=== PATIENT | male | born 1980 | race African-American/Black ===

== ENCOUNTER 2018-02-21 13:04 | Emergency (ER) | payer SELFPAY ==
[2018-02-21] MEDS: IPRATRPIUM/ALBUTEROL 0.5/2.5MG 3 ML NEBU. NEB (13:57)
[2018-02-21] MEDS: cloNIDine HCL 0.1 MG TABLET PO (14:26)
[2018-02-21] MEDS: LISINOPRIL 10 MG TABLET PO (14:27)
[2018-02-21] MEDS: methylPREDNISolone SOD SUCC PF 125 MG/2 ML VIAL. IM (14:44)
[2018-02-21] MEDS: amLODIPine BESYLATE 5 MG TABLET PO (15:02)
== END 2018-02-21 15:13 | disposition home or self-care (01) ==
LOC: ER 13:04
DX: J45.901 Unspecified asthma with (acute) exacerbation (principal); I10 Essential (primary) hypertension
CPT/HCPCS: 94640; 96372; 99284; J2930; J7620

== ENCOUNTER 2018-03-05 19:36 | Emergency (ER) | payer SELFPAY ==
[2018-03-05] MEDS: methylPREDNISolone SOD SUCC PF 125 MG/2 ML VIAL. IM (20:00)
[2018-03-05] MEDS: IPRATRPIUM/ALBUTEROL 0.5/2.5MG 3 ML NEBU. NEB ×2 (20:18)
[2018-03-05] MEDS ORDERED: methylPREDNISolone SOD SUCC PF 125 MG/2 ML VIAL. IV (20:30)
== END 2018-03-05 21:08 | disposition home or self-care (01) ==
LOC: ER 21:08
DX: J45.901 Unspecified asthma with (acute) exacerbation (principal); I10 Essential (primary) hypertension; Z88.6 Allergy status to analgesic agent
CPT/HCPCS: 94640; 96372; 99284; J2930; J7620

== ENCOUNTER 2018-07-03 10:14 | Emergency (ER) | payer SELFPAY ==
[~2018-07-03] VITALS: Ht 193 cm; Wt 113.4 kg
[~2018-07-03 10:14] MED LIST: ALBU2.5V5 NEB; AMLO10TA6 PO; AMLO5TAB7 PO; AMOX1TAB11 PO; AZIT250T6 PO; HYDR25TA9 PO; LISI2.5T PO; PRED-220 PO; PRED20TA PO; PROAIR HFA8.5 GM INH
--- NOTE | 2018-07-03 11:04 | PHYS DOC ---
Past Medical History Past Medical History: Asthma, Hypertension Past Surgical History: Other Additional Past Surgical Histo: ACL, ACHILLES TENDON Alcohol Use: None Drug Use: None Adult General Chief Complaint Chief Complaint: ABSCESS HPI HPI Patient is a 38 year old male who presents with an abscess on the left buttock that he noted on Tuesday which is 4 days ago. Patient denies any fever. He states his tried to open up the abscess at home with no success. Review of Systems Review of Systems Constitutional: Denies fever or chills [] Eyes: Denies change in visual acuity, redness, or eye pain [] HENT: Denies nasal congestion or sore throat [] Respiratory: Denies cough or shortness of breath [] Cardiovascular: No additional information not addressed in HPI [] GI: Denies abdominal pain, nausea, vomiting, bloody stools or diarrhea [] : Denies dysuria or hematuria [] Musculoskeletal: Denies back pain or joint pain [] Integument: abscess on the left buttock Neurologic: Denies headache, focal weakness or sensory changes [] All other systems were reviewed and found to be within normal limits, except as documented in this note. Current Medications Current Medications Current Medications Medications (Trade) Dose Ordered Sig/Fariba Start Time Stop Time Status Last Admin Dose Admin Diphtheria/ Tetanus/Acell Pertussis (Boostrix) 0.5 ml ONCE ONCE 07/03/18 11:30 07/03/18 11:31 DC Lidocaine/Sodium Bicarbonate (Buffered Lidocaine 1%) 3 ml 1X ONCE 07/03/18 11:30 07/03/18 11:31 DC Allergies Allergies Allergies Coded Allergies Type Severity Reaction Last Updated Verified JESSICA Inhibitors Allergy Severe face / lipsswelling 03/20/18 Yes aspirin Allergy Severe ANAPHALAXIS 03/21/18 Yes Physical Exam Physical Exam Constitutional: Well developed, well nourished, no acute distress, non-toxic appearance. [] HENT: Normocephalic, atraumatic, bilateral external ears normal, oropharynx moist, no oral exudates, nose normal. [] Eyes: PERRLA, EOMI, conjunctiva normal, no discharge. [] Neck: Normal range of motion, no tenderness, supple, no stridor. [] Cardiovascular:Heart rate regular rhythm, no murmur [] Lungs & Thorax: Bilateral breath sounds clear to auscultation [] Abdomen: Bowel sounds normal, soft, no tenderness, no masses, no pulsatile masses. [] Skin: Warm, dry, and left buttock with an indurated area approximately 0.5 x 0.5 cm with surrounding area of firmness approximately 1 x 1 cm. The area is warm tender to touch with surrounding erythema. Back: No tenderness, no CVA tenderness. [] Extremities: No tenderness, no cyanosis, no clubbing, ROM intact, no edema. [] Neurologic: Alert and oriented X 3, normal motor function, normal sensory function, no focal deficits noted. [] Psychologic: Affect normal, judgement normal, mood normal. [] Current Patient Data Vital Signs Vital Signs Date Time Temp Pulse Resp B/P (MAP) Pulse Ox O2 Delivery O2 Flow Rate FiO2 07/03/18 11:05 98.7 66 18 195/117 (143) Room Air 98.7 EKG EKG [] Radiology/Procedures Radiology/Procedures Indication: abscess of the left buttock Procedure: The patient was positioned appropriately. Local anesthesia was 1% of lidocaine. An incision was then made over the apex of the lesion with an 11 blade and small amount of yellow bloody material was expressed. The drainage cavity was irrigated and covered with sterile gauze. The patients tetanus status updated as needed. The patient tolerated the procedure well. Complications: none.[] Course & Med Decision Making Course & Med Decision Making Pertinent Labs and Imaging studies reviewed. (See chart for details) This is a 38-year-old male patient presenting to the ED with an abscess to the left buttock that he has had for 4 days. Tetanus was updated. I&D was performed on the abscess. Patient was placed on Bactrim. Warm compresses recommended. Instructed to follow-up with PCP in 1-2 weeks as needed. Instructed to return to the ED at any point symptoms worsen. Dragon Disclaimer Dragon Disclaimer This electronic medical record was generated, in whole or in part, using a voice recognition dictation system. Departure Departure Impression: Primary Impression: Cellulitis and abscess of buttock Disposition: 01 HOME, SELF-CARE Condition: STABLE Referrals: Cem MASSEY MD (PCP) Follow-up in 1-2 weeks as needed Patient Instructions: Abscess, Care After Additional Instructions: You were evaluated in the emergency room for an abscess with cellulitis on her bilateral. Keep the area clean and dry. Follow-up with your own doctor in 1-2 weeks as needed. Complete your oral antibiotics. Come back to the ED at any point symptoms worsen. Scripts Sulfamethoxazole/Trimethoprim (BACTRIM DS TABLET) 1 Each Tablet 1 TAB PO BID, #20 TAB Prov: YESENIA KELSEY APRN 07/03/18 YESENIA KELSEY APRN Jul 03, 2018 11:04
[2018-07-03 11:05] VITALS: BP 195/117
[2018-07-03] MEDS ORDERED: DIPHTH,PERTUSS(ACELL),TET TOX 0.5 ML DISP.SYRIN. VAX IM ONE (11:30)
[2018-07-03] MEDS ORDERED: LIDOCAINE WITH 8.4% SOD BICARB 3 ML DISP.SYRIN. INJ ONE (11:30)
[2018-07-03] MEDS ORDERED: SULF1TAB24 PO (11:41)
== END 2018-07-03 12:30 | disposition home or self-care (01) ==
LOC: ER 10:14
DX: L02.31 Cutaneous abscess of buttock (principal); L03.317 Cellulitis of buttock; J45.909 Unspecified asthma, uncomplicated; I10 Essential (primary) hypertension; Z88.8 Allergy status to other drugs, medicaments and biological substances; Z88.6 Allergy status to analgesic agent
CPT/HCPCS: 10060; 99283

== ENCOUNTER 2019-02-01 15:39 | Emergency (ER) | payer SELFPAY ==
[~2019-02-01] VITALS: Ht 193 cm; Wt 113.4 kg
[~2019-02-01 15:39] MED LIST changes: +ALBU2.5V8 INH; -AMLO10TA6 PO; +AMLO10TA8 PO; +AMLO5TAB10 PO; -AMLO5TAB7 PO; +HYDR-2145 PO; -HYDR25TA9 PO; -PROAIR HFA8.5 GM INH; +SULF1TAB24 PO
--- NOTE | 2019-02-01 16:20 | PHYS DOC ---
Past Medical History Past Medical History: Asthma, Hypertension Past Surgical History: Other Additional Past Surgical Histo: ACL, ACHILLES TENDON Additional Information: non smoker Alcohol Use: None Drug Use: None Adult General Chief Complaint Chief Complaint: SOB HPI HPI Patient is a 38-year-old male who presents to the ER with a chief complaint of shortness breath. Has a history of asthma. Symptoms started this morning while working outside and has associated symptom of coughing. He has frequent asthma exacerbations and has been intubated in the past. Has used his inhaler 4 times today and states it is not getting better. States he is a 7 out of 10 in severity on the shortness of breath. Review of Systems Review of Systems Constitutional: Denies fever or chills [] Eyes: Denies change in visual acuity, redness, or eye pain [] HENT: Reports nasal congestion. Respiratory: Reports cough and shortness of breath [] Cardiovascular: No additional information not addressed in HPI [] GI: Denies abdominal pain, nausea, vomiting, bloody stools or diarrhea [] : Denies dysuria or hematuria [] Musculoskeletal: Denies back pain or joint pain [] Integument: Denies rash or skin lesions [] Neurologic: Denies headache, focal weakness or sensory changes [] Endocrine: Denies polyuria or polydipsia [] Complete systems were reviewed and found to be within normal limits, except as documented in this note. Current Medications Current Medications Current Medications Medications (Trade) Dose Ordered Sig/Fariba Start Time Stop Time Status Last Admin Dose Admin Albuterol Sulfate (Ventolin Neb Soln) 10 mg 1X ONCE 02/01/19 17:00 02/01/19 17:01 UNV Albuterol/ Ipratropium (Duoneb) 3 ml 1X ONCE 02/01/19 16:45 02/01/19 16:46 DC 02/01/19 16:38 3 ML Methylprednisolone Sodium Succinate (SOLU-Medrol 125MG VIAL) 125 mg 1X ONCE 02/01/19 16:45 02/01/19 16:46 DC 02/01/19 16:31 125 MG Allergies Allergies Allergies Coded Allergies Type Severity Reaction Last Updated Verified JESSICA Inhibitors Allergy Severe face / lipsswelling 03/20/18 Yes aspirin Allergy Severe ANAPHALAXIS 03/21/18 Yes Physical Exam Physical Exam Constitutional: Well developed, well nourished, no acute distress, non-toxic appearance. [] HENT: Normocephalic, atraumatic, bilateral external ears normal, oropharynx moist, no oral exudates, nose normal. [] Eyes: PERRLA, EOMI, conjunctiva normal, no discharge. [] Neck: Normal range of motion, no tenderness, supple, no stridor. [] Cardiovascular:Heart rate regular rhythm, no murmur [] Lungs & Thorax: Bilateral breath sounds wheezing in all lobes Abdomen: Bowel sounds normal, soft, no tenderness, no masses, no pulsatile masses. [] Skin: Warm, dry, no erythema, no rash. [] Back: No tenderness, no CVA tenderness. [] Extremities: No tenderness, no cyanosis, no clubbing, ROM intact, no edema. [] Neurologic: Alert and oriented X 3, normal motor function, normal sensory function, no focal deficits noted. [] Psychologic: Affect normal, judgement normal, mood normal. [] Current Patient Data Vital Signs Vital Signs Date Time Temp Pulse Resp B/P (MAP) Pulse Ox O2 Delivery O2 Flow Rate FiO2 02/01/19 17:09 99 Room Air 02/01/19 15:53 98.4 74 20 239/131 (167) 98.4 EKG EKG [] Radiology/Procedures Radiology/Procedures Prelim interpreted by []RENEE ROYAL DO Negative Chest x-ray. No infiltrates. Course & Med Decision Making Course & Med Decision Making Pertinent Labs and Imaging studies reviewed. (See chart for details) Discussed symptoms with patient. Will order chest x-ray, steroids, breathing treatment and then reevaluate the patient. He is agreeable to the plan of care. After initial breathing treatment and steroids patient has improved but still wheezing will do hour long treatment. Patient is agreeable. After hour long treatment, patient has improved more. He still has a mild wheeze in the Left upper lobe and mild wheezing in all of the right lobes. Patient s tates that he is feeling better. I offered admission to keep receiving breathing treatments and he states that he would rather be discharged home with a course of steroids. Will d/c patient home with course of steroids. Blood pressure was rechecked while I was in the room and is 197/120. Patient states he has been out of his blood pressure medication. I will prescribe him a weeks worth to get him to PCP. Kathy Disclaimer Dragon Disclaimer This electronic medical record was generated, in whole or in part, using a voice recognition dictation system. Departure Departure Impression: Primary Impression: Asthma with acute exacerbation Disposition: 01 HOME, SELF-CARE Condition: IMPROVED Referrals: Cem MASSEY MD (PCP) Patient Instructions: Asthma Prevention-Brief, Asthma, Adult, [id number] Additional Instructions: Follow up with PCP about asthma and BP. Take inhaler as directed and the rest of your asthma medications. Take steroids to help symptoms. Scripts Hydrochlorothiazide (HYDROCHLOROTHIAZIDE TABLET) 50 Mg Tablet 50 MG PO DAILY for Blood Pressure for 7 Days, #7 TAB 0 Refills Prov: MARY HA APRN 02/01/19 Prednisone (PREDNISONE) 20 Mg Tablet 3 TAB PO DAILY for 5 Days, #15 TAB Prov: MARY HA APRN 02/01/19 Problem Qualifiers Primary Impression: Asthma with acute exacerbation Asthma severity: moderate Asthma persistence: persistent Qualified Codes: J45.41 - Moderate persistent asthma with (acute) exacerbation MARY HA APRN February 01, 2019 16:20
[2019-02-01] MEDS ORDERED: IPRATRPIUM/ALBUTEROL 0.5/2.5MG 3 ML NEBU. NEB ONE (16:45)
[2019-02-01] MEDS ORDERED: methylPREDNISolone SOD SUCC PF 125 MG/2 ML VIAL. IM ONE (16:45)
[2019-02-01] MEDS ORDERED: ALBUTEROL SULFATE 2.5 MG/3 ML NEBU. ONE (16:51)
[2019-02-01] MEDS ORDERED: ALBUTEROL SULFATE 2.5 MG/3 ML NEBU. CONT NEB ONE ×2 (17:00)
--- NOTE | 2019-02-01 17:48 | RAD ---
CHEST PA LATERAL History: SOB starting this early am. Comparison with 02/01/2019. Heart size is not enlarged. The endotracheal tube has been removed as has feeding tube. No evidence of pneumothorax, pleural effusion or consolidating infiltrate. Regional skeleton appears intact. IMPRESSION: No consolidating infiltrate. Electronically signed by: Jadon Askew MD (02/01/2019 5:46 PM) [facility]
[2019-02-01] MEDS ORDERED: PRED20TA PO (18:34)
[2019-02-01] MEDS ORDERED: HYDR50TA6 PO (18:43)
[2019-02-01] MEDS ORDERED: LISI-334 PO (18:43)
[2019-02-01 18:46] VITALS: BP 197/131
== END 2019-02-01 18:46 | disposition home or self-care (01) ==
LOC: ER 15:39
DX: J45.21 Mild intermittent asthma with (acute) exacerbation (principal); I10 Essential (primary) hypertension; Z88.6 Allergy status to analgesic agent; Z88.8 Allergy status to other drugs, medicaments and biological substances
CPT/HCPCS: 71046; 94640; 94644; 96372; 99285; J2930; J7613; J7620

== ENCOUNTER 2019-02-12 11:47 | Inpatient (IN) | payer SELFPAY ==
[2019-02-12] VITALS (10 sets, daily range): BP systolic 132–207; BP diastolic 62–103
[~2019-02-12] VITALS: Ht 190.5 cm; Wt 106.6 kg
[~2019-02-12 11:47] MED LIST changes: +HYDR50TA6 PO; +LISI-334 PO
[2019-02-12] MEDS ORDERED: IPRATRPIUM/ALBUTEROL 0.5/2.5MG 3 ML NEBU. NEB ONE (12:00)
[2019-02-12] MEDS ORDERED: hydrALAZINE 20 MG/ML VIAL. IVP ONE ×2 (12:15→13:00)
[2019-02-12] MEDS ORDERED: methylPREDNISolone SOD SUCC PF 125 MG/2 ML VIAL. IV ONE (12:15)
--- NOTE | 2019-02-12 12:15 | PHYS DOC ---
Past Medical History Past Medical History: Asthma, Hypertension Past Surgical History: Other Additional Past Surgical Histo: ACL, ACHILLES TENDON Alcohol Use: None Drug Use: None Adult General Chief Complaint Chief Complaint: SHORTNESS OF BREATH HPI HPI Patient is a 38 year old male with a history of asthma hypertension presents to the ED complaining of shortness of breath times one week. Patient was last seen here on February 01. Patient states he had an hour-long breathing treatment and felt better. States that he is having worsening shortness of breath since then. Patient has been intubated in the past for his asthma. Reports he did not take his blood pressure. Denies headache, vision changes, chest pain, dizziness, n/v, abdominal pain, lower leg swelling, recent travel, rash, fever or sore throat. Review of Systems Review of Systems Constitutional: Denies fever or chills [] Eyes: Denies change in visual acuity, redness, or eye pain [] HENT: Denies nasal congestion or sore throat [] Respiratory: Complains of shortness of breath and wheezing. Cardiovascular: No additional information not addressed in HPI [] GI: Denies abdominal pain, nausea, vomiting, bloody stools or diarrhea [] : Denies dysuria or hematuria [] Musculoskeletal: Denies back pain or joint pain [] Integument: Denies rash or skin lesions [] Neurologic: Denies headache, focal weakness or sensory changes [] All other systems were reviewed and found to be within normal limits, except as documented in this note. Current Medications Current Medications Current Medications Medications (Trade) Dose Ordered Sig/Fariba Start Time Stop Time Status Last Admin Dose Admin Albuterol Sulfate (Ventolin Neb Soln) 10 mg 1X ONCE 02/12/19 12:45 02/12/19 12:46 DC 02/12/19 13:09 10 MG Albuterol/ Ipratropium (Duoneb) 3 ml 1X ONCE 02/12/19 12:00 02/12/19 12:01 DC 02/12/19 12:12 3 ML Clonidine HCl (Catapres) 0.2 mg 1X ONCE 02/12/19 13:00 02/12/19 13:02 DC 02/12/19 13:55 0.2 MG Hydralazine HCl (Apresoline Inj) 10 mg 1X ONCE 02/12/19 13:00 02/12/19 13:01 DC 02/12/19 12:59 10 MG Magnesium Sulfate 50 ml @ 25 mls/hr 1X ONCE 02/12/19 12:45 02/12/19 14:44 DC 02/12/19 12:59 25 MLS/HR Methylprednisolone Sodium Succinate (SOLU-Medrol 125MG VIAL) 125 mg 1X ONCE 02/12/19 12:15 02/12/19 12:16 DC 02/12/19 12:15 125 MG Allergies Allergies Allergies Coded Allergies Type Severity Reaction Last Updated Verified JESSICA Inhibitors Allergy Severe face / lipsswelling 03/20/18 Yes aspirin Allergy Severe ANAPHALAXIS 03/21/18 Yes Physical Exam Physical Exam Constitutional: no acute distress, non-toxic appearance. [] HENT: Normocephalic, atraumatic, bilateral external ears normal, oropharynx moist, no oral exudates, nose normal. [] Eyes: PERRLA, EOMI, conjunctiva normal, no discharge. [] Neck: Normal range of motion, no tenderness, supple, no stridor. [] Cardiovascular:Heart rate regular rhythm, no murmur [] Lungs & Thorax: Moderate wheezing bilaterally. Abdomen: Bowel sounds normal, soft, no tenderness, no masses, no pulsatile masses. [] Skin: Warm, dry, no erythema, no rash. [] Back: No tenderness, no CVA tenderness. [] Extremities: No tenderness, no cyanosis, no clubbing, ROM intact, no edema. [] Neurologic: Alert and oriented X 3, normal motor function, normal sensory function, no focal deficits noted. [] Psychologic: Affect normal, judgement normal, mood normal. [] Current Patient Data Vital Signs Vital Signs Date Time Temp Pulse Resp B/P (MAP) Pulse Ox O2 Delivery O2 Flow Rate FiO2 02/12/19 13:55 89 233/122 02/12/19 13:54 18 96 02/12/19 13:22 Room Air 02/12/19 11:48 98.0 98.0 Lab Values Laboratory Tests Test 02/12/19 12:00 White Blood Count 8.9 x10^3/uL (4.0-11.0) Red Blood Count 5.41 x10^6/uL (4.30-5.70) Hemoglobin 15.6 g/dL (13.0-17.5) Hematocrit 48.1 % (39.0-53.0) Mean Corpuscular Volume 89 fL (79-100) Mean Corpuscular Hemoglobin 29 pg (25-35) Mean Corpuscular Hemoglobin Concent 33 g/dL (31-37) Red Cell Distribution Width 16.7 % (11.5-14.5) H Platelet Count 227 x10^3/uL (140-400) Neutrophils (%) (Auto) 57 % (31-73) Lymphocytes (%) (Auto) 27 % (24-48) Monocytes (%) (Auto) 7 % (0-9) Eosinophils (%) (Auto) 8 % (0-3) H Basophils (%) (Auto) 1 % (0-3) Neutrophils # (Auto) 5.1 x10^3uL (1.8-7.7) Lymphocytes # (Auto) 2.4 x10^3/uL (1.0-4.8) Monocytes # (Auto) 0.6 x10^3/uL (0.0-1.1) Eosinophils # (Auto) 0.7 x10^3/uL (0.0-0.7) Basophils # (Auto) 0.1 x10^3/uL (0.0-0.2) Sodium Level 143 mmol/L (136-145) Potassium Level 3.7 mmol/L (3.5-5.1) Chloride Level 101 mmol/L (98-107) Carbon Dioxide Level 32 mmol/L (21-32) Anion Gap 10 (6-14) Blood Urea Nitrogen 11 mg/dL (8-26) Creatinine 1.3 mg/dL (0.7-1.3) Estimated GFR (Cockcroft-Gault) 74.0 Glucose Level 88 mg/dL (70-99) Calcium Level 9.4 mg/dL (8.5-10.1) Magnesium Level 2.0 mg/dL (1.8-2.4) Troponin I Quantitative 0.117 ng/mL (0.000-0.055) Laboratory Tests 02/12/19 12:00 Laboratory Tests 02/12/19 12:00 EKG EKG [] Radiology/Procedures Radiology/Procedures []PROCEDURE: PORTABLE CHEST 1V EXAM: CHEST 1 VIEW History: Shortness of breath COMPARISON: 02/01/2019 TECHNIQUE: Single portable radiograph of the chest FINDINGS: The cardiac silhouette is unremarkable. The lungs are clear bilaterally. The costophrenic sulci are clear and well demarcated. IMPRESSION: No radiographic evidence of an acute cardiopulmonary process. Course & Med Decision Making Course & Med Decision Making Pertinent Labs and Imaging studies reviewed. (See chart for details) []Discussed lab and imaging findings with patient. Patient given duoneb, 2 grams of magnesium, and an hour-long nebulizer in the ED. Patient's blood pressure is uncontrolled with IV medication in the ED and a cardene drip was started. BP at 1545 was 180s/90s. States he is feeling better. Patient to be admitted to the ICU for hypertensive urgency, elevated troponin and asthma exacerbation. Discussed case with hospitalist, Dr. Lowery. Agrees to admission and further management patient. Patient's stable for admission. Dragon Disclaimer Dragon Disclaimer This electronic medical record was generated, in whole or in part, using a voice recognition dictation system. Departure Departure Impression: Primary Impression: Acute severe exacerbation of asthma Additional Impressions: Elevated troponin Hypertensive urgency Disposition: 09 ADMITTED INPATIENT Admitting Physician: Danis Massey Condition: STABLE Referrals: Cem MASSEY MD (PCP) Problem Qualifiers ALIE MURDOCK February 12, 2019 12:15
[2019-02-12 12:18] LABS: BASO # 0.1 x10^3/uL (0.0-0.2); BASO % 1 % (0-3); EOS # 0.7 x10^3/uL (0.0-0.7); EOS % 8 % (0-3); HEMATOCRIT 48.1 % (39.0-53.0); HEMOGLOBIN 15.6 g/dL (13.0-17.5); LYMPH # 2.4 x10^3/uL (1.0-4.8); LYMPH % 27 % (24-48); MEAN CORPUSCULAR HEMOGLOBIN 29 pg (25-35); MEAN CORPUSCULAR HGB CONC 33 g/dL (31-37); MEAN CORPUSCULAR VOLUME 89 fL (79-100); MONO # 0.6 x10^3/uL (0.0-1.1); MONO % 7 % (0-9); NEUT # 5.1 x10^3uL (1.8-7.7); NEUT % 57 % (31-73); PLATELET COUNT 227 x10^3/uL (140-400); RED BLOOD COUNT 5.41 x10^6/uL (4.30-5.70); RED CELL DISTRIBUTION WIDTH 16.7 % (11.5-14.5); WHITE BLOOD COUNT 8.9 x10^3/uL (4.0-11.0)
--- NOTE | 2019-02-12 12:25 | RAD ---
EXAM: CHEST 1 VIEW History: Shortness of breath COMPARISON: 02/01/2019 TECHNIQUE: Single portable radiograph of the chest FINDINGS: The cardiac silhouette is unremarkable. The lungs are clear bilaterally. The costophrenic sulci are clear and well demarcated. IMPRESSION: No radiographic evidence of an acute cardiopulmonary process. Electronically signed by: Homer Damon MD (02/12/2019 12:22 PM) [id number]
[2019-02-12 12:28] LABS: CALCIUM 9.4 mg/dL (8.5-10.1); CREATININE 1.3 mg/dL (0.7-1.3); POTASSIUM 3.7 mmol/L (3.5-5.1)
[2019-02-12] MEDS ORDERED: ALBUTEROL SULFATE 2.5 MG/3 ML NEBU. CONT NEB ONE (12:45)
[2019-02-12] MEDS ORDERED: MAGNESIUM SULFATE 2GM 50 ML IV ONE (12:45)
[2019-02-12] MEDS ORDERED: cloNIDine HCL 0.1 MG TABLET PO ONE (13:00)
--- NOTE | 2019-02-12 13:23 | EKG ---
[facility] [address] [place] [address] Test Date: 2019-02-12 Test Time: 12:08:43 Pat Name: MARLENE MCMULLEN Department: Room: Gender: Ware[employer]ist: [place] : [id number] Requested By: ALIE MURDOCK Order Number: [id number] Reading MD: Juan Antonio Mo Measurements Intervals Palmer Rate: 79 P: 25 CO: 128 QRS: -31 QRSD: 88 T: 66 QT: 390 QTc: 448 Interpretive Statements SINUS RHYTHM LEFT ATRIAL ABNORMALITY ABNORMAL LEFT AXIS DEVIATION LEFT ANTERIOR FASCICULAR BLOCK T ABNORMALITY IN HIGH LATERAL LEADS ABNORMAL ECG Electronically Signed On 03-09-2019 11:40:14 CDT by Juan Antonio Mo
[2019-02-12] MEDS ORDERED: ONDANSETRON PF 4 MG/2 ML VIAL. IV PRN (14:30)
[2019-02-12] MEDS: niCARdipine 50 MG in IV NORMAL SALINE 250ML 250 ML IV PRN ×2 (15:22→19:40)
[2019-02-12] MEDS: IPRATRPIUM/ALBUTEROL 0.5/2.5MG 3 ML NEBU. NEB SCH ×2 (17:22→20:00)
[2019-02-12] MEDS ORDERED: ALBUTEROL SULFATE 2.5 MG/3 ML NEBU. NEB PRN (19:15)
--- NOTE | 2019-02-12 19:16 | PDOC1 ---
History and Physical Date of Admission Date of Admission DATE: 02/12/19 TIME: 19:13 Identification/Chief Complaint Chief Complaint Shortness of breath Source Source: Patient History of Present Illness History of Present Illness Patient is a 38 year old male with a history of asthma (previously requiring intubation), hypertension presents to the ED complaining of shortness of breath progressive over the past week. Patient was last seen here on February 01. Patient states he had an hour-long breathing treatment and felt better, was sent home on steroid taper. States that he is having worsening shortness of breath since then that barely improved. Patient has been intubated in the past for his asthma, so after only slight improvement in his respiratory status in ED he was called for admission. Reports he did not take his blood pressure. Denies headache, vision changes, chest pain, dizziness, n/v, abdominal pain, lower leg swelling, recent travel, rash, fever or sore throat. He was noted with severely elevated BP 233/133 and elevated troponin as well, admitted to ICU for nicardipine GTT. Past Medical History Cardiovascular: HTN Pulmonary: Asthma, Previously Intubated GI: No pertinent hx Heme/Onc: No pertinent hx Hepatobiliary: No pertinent hx Psych: No pertinent hx Rheumatologic: No pertinent hx Infectious disease: No pertinent hx ENT: No pertinent hx Renal/: No pertinent hx Endocrine: No pertinent hx Dermatology: No pertinent hx Past Surgical History Past Surgical History: No pertinent history Family History Family History: Asthma Social History Smoke: No ALCOHOL: rare Drugs: Marijuana Current Problem List Problem List Problems Medical Problems: (1) Acute severe exacerbation of asthma Status: Acute (2) Elevated troponin Status: Acute (3) Hypertensive urgency Status: Acute (4) Hypertensive urgency, malignant Status: Acute Current Medications Current Medications Current Medications Albuterol/ Ipratropium (Duoneb) 3 ml 1X ONCE NEB Last administered on 02/12/19at 12:12; Start 02/12/19 at 12:00; Stop 02/12/19 at 12:01; Status DC Methylprednisolone Sodium Succinate (SOLU-Medrol 125MG VIAL) 125 mg 1X ONCE IV Last administered on 02/12/19at 12:15; Start 02/12/19 at 12:15; Stop 02/12/19 at 12:16; Status DC Hydralazine HCl (Apresoline Inj) 10 mg 1X ONCE IVP Last administered on 02/12/19at 12:18; Start 02/12/19 at 12:15; Stop 02/12/19 at 12:16; Status DC Albuterol Sulfate (Ventolin Neb Soln) 10 mg 1X ONCE CONT NEB Last administered on 02/12/19at 13:09; Start 02/12/19 at 12:45; Stop 02/12/19 at 12:46; Status DC Magnesium Sulfate 50 ml @ 25 mls/hr 1X ONCE IV Last administered on 02/12/19at 12:59; Start 02/12/19 at 12:45; Stop 02/12/19 at 14:44; Status DC Hydralazine HCl (Apresoline Inj) 10 mg 1X ONCE IVP Last administered on 02/12/19at 12:59; Start 02/12/19 at 13:00; Stop 02/12/19 at 13:01; Status DC Clonidine HCl (Catapres) 0.2 mg 1X ONCE PO Last administered on 02/12/19at 13:55; Start 02/12/19 at 13:00; Stop 02/12/19 at 13:02; Status DC Ondansetron HCl (Zofran) 4 mg PRN Q8HRS PRN IV NAUSEA/VOMITING; Start 02/12/19 at 14:30; Stop 02/13/19 at 14:29 Fentanyl Citrate (Fentanyl 2ml Vial) 50 mcg PRN Q1HR PRN IV PAIN; Start 02/12/19 at 14:30; Stop 02/13/19 at 14:29 Albuterol/ Ipratropium (Duoneb) 3 ml RTQID NEB Last administered on 02/12/19at 17:22; Start 02/12/19 at 16:00; Stop 02/13/19 at 15:59 Nicardipine HCl 50 mg/Sodium Chloride 250 ml @ 25 mls/hr CONT PRN IV SEE I/O RECORD Last administered on 02/12/19at 15:22; Start 02/12/19 at 15:15 Active Scripts Active Hydrochlorothiazide Tablet (Hydrochlorothiazide) 25 Mg Tablet 25 Mg PO DAILY 30 Days Albuterol Sulfate Neb Soln (Albuterol Sulfate) 2.5 Mg/3 Ml Vial.neb 1 Vial NEB PRN Q4HRS Allergies Allergies: Coded Allergies: JESSICA Inhibitors (Verified Allergy, Severe, face / lipsswelling, 6/18/18) aspirin (Verified Allergy, Severe, ANAPHALAXIS, 03/21/18) ROS General: YES: Fatigue, Malaise; No: Chills, Night Sweats, Appetite, Other PSYCHOLOGICAL ROS: No: Anxiety, Behavioral Disorder, Concentration difficultie, Decreased libido, Depression, Disorientation, Hallucinations, Hostility, Irritablity, Memory difficulties, Mood Swings, Obsessive thoughts, Physical abuse, Sexual abuse, Sleep disturbances, Suicidal ideation, Other Eyes: No Blurry vision, No Decreased vision, No Double vision, No Dry eyes, No Excessive tearing, No Eye Pain, No Itchy Eyes, No Loss of vision, No Photophobia, No Scotomata, No Uses contacts, No Uses glasses, No Other HEENT: No: Heacaches, Visual Changes, Hearing change, Nasal congestion, Nasal discharge, Oral lesions, Sinus pain, Sore Throat, Epistaxis, Sneezing, Snoring, Tinnitus, Vertigo, Vocal changes, Other ALLERGY AND IMMUNOLOGY: YES: Nasal Congestion, Post Nasal Drip, Seasonal Allergies; No: Hives, Insect Bite Sensitivity, Itchy/Watery Eyes, Other Hematological and Lymphatic: No: Bleeding Problems, Blood Clots, Blood Transfusions, Brusing, Night Sweats, Pallor, Swollen Lymph Nodes, Other ENDOCRINE: No: Breast Changes, Galactorrhea, Hair Pattern Changes, Hot Flashes, Malaise/lethargy, Mood Swings, Palpitations, Polydipsia/polyuria, Skin Changes, Temperature Intolerance, Unexpected Weight Changes, Other Breast: No New/Changing Breast Lumps, No Nipple changes, No Nipple discharge, No Other Respiratory: YES: Cough, Shortness of breath, SOB with excertion, Tachypnea, Wheezing; No: Hemoptysis, Orthopnea, Pleuritic Pain, Sputum Changes, Stridor, Other Cardiovascular: No Chest Pain, No Palpitations, No Orthopnea, No Paroxysmal Noc. Dyspnea, No Edema, No Lt Headedness, No Other Gastrointestinal: Yes Nausea; No Vomiting, No Abdominal Pain, No Diarrhea, No Constipation, No Melena, No Hematochezia, No Other Genitourinary: No Dysuria, No Frequency, No Incontinence, No Hematuria, No Retention, No Discharge, No Urgency, No Pain, No Flank Pain, No Other, No , No , No , No , No , No , No Musculoskeletal: No Gait Disturbance, No Joint Pain, No Joint Stiffness, No Joint Swelling, No Muscle Pain, No Muscular Weakness, No Pain In:, No Swelling In:, No Other Neurological: No Behavorial Changes, No Bowel/Bladder ControlChng, No Confusion, No Dizziness, No Gait Disturbance, No Headaches, No Impaired Coord/balance, No Memory Loss, No Numbness/Tingling, No Seizures, No Speech Problems, No Tremors, No Visual Changes, No Weakness, No Other Skin: No Dry Skin, No Eczema, No Hair Changes, No Lumps, No Mole Changes, No Mottling, No Nail Changes, No Pruritus, No Rash, No Skin Lesion Changes, No Other, No Acne Physical Exam General: Alert, Oriented X3, Cooperative, No acute distress HEENT: Atraumatic, PERRLA, EOMI, Mucous membr. moist/pink Lungs: Other (Scattered wheezes, prolonged expiratory phase) Heart: S1S2, RRR, no gallops, no murmurs Abdomen: Normal bowel sounds, Soft, No tenderness, No hepatosplenomegaly, No masses Extremities: No clubbing, No cyanosis, No edema, Normal pulses, No tenderness/swelling Skin: No rashes, No breakdown, No significant lesion Neuro: Normal gait, Normal speech, Strength at 5/5 X4 ext, Normal tone, Sensation intact, Cranial nerves 3-12 NL, Reflexes 2+ Psych/Mental Status: Mental status NL, Mood NL Vitals Vitals Vital Signs Date Time Temp Pulse Resp B/P (MAP) Pulse Ox O2 Delivery O2 Flow Rate FiO2 02/12/19 18:00 101 20 186/99 (128) 96 Room Air 02/12/19 16:00 98.1 98.1 Labs Labs Laboratory Tests Test 02/12/19 12:00 White Blood Count 8.9 x10^3/uL (4.0-11.0) Red Blood Count 5.41 x10^6/uL (4.30-5.70) Hemoglobin 15.6 g/dL (13.0-17.5) Hematocrit 48.1 % (39.0-53.0) Mean Corpuscular Volume 89 fL (79-100) Mean Corpuscular Hemoglobin 29 pg (25-35) Mean Corpuscular Hemoglobin Concent 33 g/dL (31-37) Red Cell Distribution Width 16.7 % (11.5-14.5) Platelet Count 227 x10^3/uL (140-400) Neutrophils (%) (Auto) 57 % (31-73) Lymphocytes (%) (Auto) 27 % (24-48) Monocytes (%) (Auto) 7 % (0-9) Eosinophils (%) (Auto) 8 % (0-3) Basophils (%) (Auto) 1 % (0-3) Neutrophils # (Auto) 5.1 x10^3uL (1.8-7.7) Lymphocytes # (Auto) 2.4 x10^3/uL (1.0-4.8) Monocytes # (Auto) 0.6 x10^3/uL (0.0-1.1) Eosinophils # (Auto) 0.7 x10^3/uL (0.0-0.7) Basophils # (Auto) 0.1 x10^3/uL (0.0-0.2) Sodium Level 143 mmol/L (136-145) Potassium Level 3.7 mmol/L (3.5-5.1) Chloride Level 101 mmol/L (98-107) Carbon Dioxide Level 32 mmol/L (21-32) Anion Gap 10 (6-14) Blood Urea Nitrogen 11 mg/dL (8-26) Creatinine 1.3 mg/dL (0.7-1.3) Estimated GFR (Cockcroft-Gault) 74.0 Glucose Level 88 mg/dL (70-99) Calcium Level 9.4 mg/dL (8.5-10.1) Magnesium Level 2.0 mg/dL (1.8-2.4) Troponin I Quantitative 0.117 ng/mL (0.000-0.055) Laboratory Tests Test 02/12/19 12:00 White Blood Count 8.9 x10^3/uL (4.0-11.0) Red Blood Count 5.41 x10^6/uL (4.30-5.70) Hemoglobin 15.6 g/dL (13.0-17.5) Hematocrit 48.1 % (39.0-53.0) Mean Corpuscular Volume 89 fL (79-100) Mean Corpuscular Hemoglobin 29 pg (25-35) Mean Corpuscular Hemoglobin Concent 33 g/dL (31-37) Red Cell Distribution Width 16.7 % (11.5-14.5) Platelet Count 227 x10^3/uL (140-400) Neutrophils (%) (Auto) 57 % (31-73) Lymphocytes (%) (Auto) 27 % (24-48) Monocytes (%) (Auto) 7 % (0-9) Eosinophils (%) (Auto) 8 % (0-3) Basophils (%) (Auto) 1 % (0-3) Neutrophils # (Auto) 5.1 x10^3uL (1.8-7.7) Lymphocytes # (Auto) 2.4 x10^3/uL (1.0-4.8) Monocytes # (Auto) 0.6 x10^3/uL (0.0-1.1) Eosinophils # (Auto) 0.7 x10^3/uL (0.0-0.7) Basophils # (Auto) 0.1 x10^3/uL (0.0-0.2) Sodium Level 143 mmol/L (136-145) Potassium Level 3.7 mmol/L (3.5-5.1) Chloride Level 101 mmol/L (98-107) Carbon Dioxide Level 32 mmol/L (21-32) Anion Gap 10 (6-14) Blood Urea Nitrogen 11 mg/dL (8-26) Creatinine 1.3 mg/dL (0.7-1.3) Estimated GFR (Cockcroft-Gault) 74.0 Glucose Level 88 mg/dL (70-99) Calcium Level 9.4 mg/dL (8.5-10.1) Magnesium Level 2.0 mg/dL (1.8-2.4) Troponin I Quantitative 0.117 ng/mL (0.000-0.055) Images Images CXR - No radiographic evidence of an acute cardiopulmonary process. VTE Prophylaxis Ordered VTE Prophylaxis Devices: No VTE Pharmacological Prophylaxi: Yes Assessment/Plan Assessment/Plan A/P: Acute asthma exacerbation - previously requiring intubation, he has air movement, came early enough to likely avoid intubation. Will give aggressive nebs, steroids, singulair, pulmicort. Pulm to see. Hypertensive emergency - with elevated troponin, with his JESSICA allergy and no response to hydralazine and relative contraindication to BB with his asthma exacerbation and BP 233/133 will admit to ICU on nicardipine GTT, start thiazide and hopefully change to oral CCB in the morning Elevated troponin - likely demand ischemia from asthma and HTN emergency, will trend. May need echo and stress testing when his asthma is stable IVAN - cr 1.3, likely vasomotor from poor PO intake due to his asthma exacerbation. encourage PO. Will not give IVF due to his elevated BP FEN - General diet PPX - heparin FULL CODE ICU for HTN emergency with concomitant asthma exacerbation will require likely 2 midnights of inpatient treatment JOAO RIZZO MD February 12, 2019 19:16
[2019-02-12] MEDS: BUDESONIDE 0.5 MG/2 ML NEBU. NEB SCH (20:00)
[2019-02-12] MEDS: hydroCHLOROthiazide 25 MG TABLET PO SCH (20:03)
[2019-02-12] MEDS: fentaNYL PF VIAL 100 MCG/2 ML VIAL IV PRN (20:52)
[2019-02-12] MEDS ORDERED: MONTELUKAST SODIUM 10 MG TABLET. PO SCH (21:00)
[2019-02-12] MEDS ORDERED: LORazepam 1 MG TABLET PO PRN (22:45)
[2019-02-13] VITALS (18 sets, daily range): BP systolic 106–185; BP diastolic 58–94
[2019-02-13] MEDS: niCARdipine 50 MG in IV NORMAL SALINE 250ML 250 ML IV PRN ×3 (01:04→10:31)
[2019-02-13] MEDS: hydrALAZINE 20 MG/ML VIAL. IVP PRN ×3 (01:14→15:40)
[2019-02-13 04:32] LABS: BASO % 0 % (0-3); EOS % 0 % (0-3); HEMATOCRIT 44.4 % (39.0-53.0); HEMOGLOBIN 14.5 g/dL (13.0-17.5); LYMPH # 1.3 x10^3/uL (1.0-4.8); LYMPH % 7 % (24-48); MEAN CORPUSCULAR HEMOGLOBIN 29 pg (25-35); MEAN CORPUSCULAR HGB CONC 33 g/dL (31-37); MEAN CORPUSCULAR VOLUME 88 fL (79-100); MONO # 0.7 x10^3/uL (0.0-1.1); MONO % 4 % (0-9); NEUT # 16.8 x10^3uL (1.8-7.7); NEUT % 89 % (31-73); PLATELET COUNT 224 x10^3/uL (140-400); RED BLOOD COUNT 5.05 x10^6/uL (4.30-5.70); RED CELL DISTRIBUTION WIDTH 16.4 % (11.5-14.5); WHITE BLOOD COUNT 18.8 x10^3/uL (4.0-11.0)
[2019-02-13] MEDS: fentaNYL PF VIAL 100 MCG/2 ML VIAL IV PRN (04:44)
[2019-02-13 04:59] LABS: ALBUMIN 3.6 g/dL (3.4-5.0); ALBUMIN/GLOBULIN RATIO 0.9 (1.0-1.7); CALCIUM 9.5 mg/dL (8.5-10.1); CREATININE 1.4 mg/dL (0.7-1.3); GFR 67.9; POTASSIUM 3.7 mmol/L (3.5-5.1); TOTAL BILIRUBIN 0.5 mg/dL (0.2-1.0); TOTAL PROTEIN 7.4 g/dL (6.4-8.2)
[2019-02-13 05:12] LABS: % BANDS 1 % (0-9); % LYMPHS 11 % (24-48); % MONOS 1 % (0-10); % SEGS 87 % (35-66); PLT ESTIMATE ADEQUATE (ADEQUATE)
[2019-02-13] MEDS: IPRATRPIUM/ALBUTEROL 0.5/2.5MG 3 ML NEBU. NEB SCH ×2 (08:39→12:51)
[2019-02-13] MEDS: BUDESONIDE 0.5 MG/2 ML NEBU. NEB SCH (08:39)
[2019-02-13] MEDS: hydroCHLOROthiazide 25 MG TABLET PO SCH (08:47)
[2019-02-13] MEDS ORDERED: predniSONE 20 MG TABLET PO SCH (09:00)
--- NOTE | 2019-02-13 11:29 | NUR ---
SS following for discharge planning. SS reviewed pt chart. Pt is from home with spouse and is currently on room air. Pt is self pay and [facility] is following for self pay status. No discharge needs noted at this time. SS will continue to follow for discharge planning.
--- NOTE | 2019-02-13 11:54 | CONS ---
DATE OF CONSULTATION: ATTENDING PHYSICIAN: Dr. Lowery. REASON FOR CONSULTATION: Asthma exacerbation. HISTORY OF PRESENT ILLNESS: The patient is a 38-year-old who has history of asthma as a child, he never outgrew it. He has received intubation about 15 years ago. His asthma is usually triggered by allergies and pollens around springtime. The patient was brought into the hospital with complaint of some shortness of breath. He has no significant cough, fever, chills, no chest pains. His blood pressure was also high up to 233/133. As a result, he has been on Cardene drip in the ICU. Chest x-ray showed hyperinflated lungs, but no definite infiltrates. He feels better and wants to go home. He is on a Cardene drip still. PAST MEDICAL HISTORY: History of hypertension, history of asthma as a child. Never outgrew it. PAST SURGICAL HISTORY: No recent surgeries. ALLERGIES: JESSICA INHIBITORS AND ASPIRIN. CURRENT MEDICATIONS: Reviewed as listed in the [facility]. REVIEW OF SYSTEMS: Twelve-point system obtained. Pertinent positives discussed in my history of present illness, otherwise noncontributory. All systems that were negative were reviewed as well. SOCIAL HISTORY: Nonsmoker. PHYSICAL EXAMINATION: VITAL SIGNS: Reviewed. Blood pressure now 166. Pulse ox 97% on room air. NECK: Supple. LUNGS: With faint expiratory wheezes. CARDIOVASCULAR: Regular rate and rhythm. ABDOMEN: Soft. EXTREMITIES: With no pitting edema. LABORATORY DATA: Reviewed. BUN 13, creatinine 1.4. White cell count 18.8, which was 8.9 and likely due to steroids. IMPRESSION: 1. Acute asthma exacerbation in a patient with asthma since childhood, never outgrew it. Asthma is usually triggered by pollens and allergies. No acute infection. He is unable to afford a steroid maintenance inhaler in order to have better control of his asthma. 2. Hypertensive urgency. Currently on Cardene drip. RECOMMENDATIONS: 1. Discussed with the patient the importance of having steroid inhaler on a regular basis. I have referred him to the clinics that could help supply free of cost inhalers. Now, I may give him a sample from the office of [facility]. In the meantime, he will need a steroid taper and albuterol inhaler along with Singulair. 2. Management of blood pressure per PCP. 3. We could go home later this afternoon once he is off the Cardene drip. Discussed with RN. BRIANA TELLES MD DR: RADHA/fernanda JOB#: [id number] / [id number]
[2019-02-13] MEDS ORDERED: amLODIPine BESYLATE 5 MG TABLET PO ONE (12:00)
--- NOTE | 2019-02-13 15:18 | PDOC ---
[employer] PROGRESS NOTE Chief Complaint Chief Complaint Acute asthma exacerbation Hypertensive urgency, chronic HTN Elevated Troponin Elevated Creatinine Marijuana use History of Present Illness History of Present Illness Patient seen and examined in ICU Discussed the risks and complications of HTN with patient Advised patient to get a home BP cuff and added a medication to his home regimen as he reports he has not PCP Discussed with nurse Patient is anxious to get out of the hospital Vitals Vitals Vital Signs Date Time Temp Pulse Resp B/P (MAP) Pulse Ox O2 Delivery O2 Flow Rate FiO2 02/13/19 13:00 89 18 174/83 (113) 97 Room Air 02/13/19 12:00 98.3 98.3 Physical Exam General: Alert, Oriented X3, Cooperative, No acute distress Lungs: Wheezing (mild wheezing upon ascultation) Abdomen: Normal bowel sounds, Soft, No tenderness, No hepatosplenomegaly, No masses Extremities: No clubbing, No cyanosis, No edema, Normal pulses, No tenderness/swelling Skin: No rashes, No breakdown, No significant lesion Labs LABS Laboratory Tests Test 02/12/19 17:38 02/12/19 20:35 02/13/19 04:15 Nasal Screen MRSA (PCR) Negative (Negative) Troponin I Quantitative 0.102 ng/mL (0.000-0.055) White Blood Count 18.8 x10^3/uL (4.0-11.0) Red Blood Count 5.05 x10^6/uL (4.30-5.70) Hemoglobin 14.5 g/dL (13.0-17.5) Hematocrit 44.4 % (39.0-53.0) Mean Corpuscular Volume 88 fL (79-100) Mean Corpuscular Hemoglobin 29 pg (25-35) Mean Corpuscular Hemoglobin Concent 33 g/dL (31-37) Red Cell Distribution Width 16.4 % (11.5-14.5) Platelet Count 224 x10^3/uL (140-400) Neutrophils (%) (Auto) 89 % (31-73) Lymphocytes (%) (Auto) 7 % (24-48) Monocytes (%) (Auto) 4 % (0-9) Eosinophils (%) (Auto) 0 % (0-3) Basophils (%) (Auto) 0 % (0-3) Neutrophils # (Auto) 16.8 x10^3uL (1.8-7.7) Lymphocytes # (Auto) 1.3 x10^3/uL (1.0-4.8) Monocytes # (Auto) 0.7 x10^3/uL (0.0-1.1) Eosinophils # (Auto) 0.0 x10^3/uL (0.0-0.7) Basophils # (Auto) 0.0 x10^3/uL (0.0-0.2) Segmented Neutrophils % 87 % (35-66) Band Neutrophils % 1 % (0-9) Lymphocytes % 11 % (24-48) Monocytes % 1 % (0-10) Platelet Estimate Adequate (ADEQUATE) Sodium Level 139 mmol/L (136-145) Potassium Level 3.7 mmol/L (3.5-5.1) Chloride Level 101 mmol/L (98-107) Carbon Dioxide Level 28 mmol/L (21-32) Anion Gap 10 (6-14) Blood Urea Nitrogen 13 mg/dL (8-26) Creatinine 1.4 mg/dL (0.7-1.3) Estimated GFR (Cockcroft-Gault) 67.9 BUN/Creatinine Ratio 9 (6-20) Glucose Level 120 mg/dL (70-99) Calcium Level 9.5 mg/dL (8.5-10.1) Total Bilirubin 0.5 mg/dL (0.2-1.0) Aspartate Amino Transf (AST/SGOT) 26 U/L (15-37) Alanine Aminotransferase (ALT/SGPT) 28 U/L (16-63) Alkaline Phosphatase 62 U/L (46-116) Total Protein 7.4 g/dL (6.4-8.2) Albumin 3.6 g/dL (3.4-5.0) Albumin/Globulin Ratio 0.9 (1.0-1.7) Review of Systems Review of Systems Patient denies chest pain Patient denies abdominal pain Assessment and Plan Assessmemt and Plan Problems Medical Problems: (1) Acute severe exacerbation of asthma Status: Acute (2) Elevated troponin Status: Acute (3) Hypertensive urgency Status: Acute (4) Hypertensive urgency, malignant Status: Acute Assessment: Acute asthma exacerbation Hypertensive urgency, chronic HTN Elevated Troponin Elevated Creatinine Marijuana use Plan: Nicardipine drip Duonebs Pulmicort Labs DVT ppx Full code For out patient use: Norvasc, Medrol dose pack, albuterol inhaler, nebulizer refill Discharge to home when pulmonary agrees Comment Review of Relevant I have reviewed the following items osbaldo (where applicable) has been applied. Labs Laboratory Tests Test 02/12/19 12:00 02/12/19 17:38 02/12/19 20:35 02/13/19 04:15 White Blood Count 8.9 x10^3/uL (4.0-11.0) 18.8 x10^3/uL (4.0-11.0) Red Blood Count 5.41 x10^6/uL (4.30-5.70) 5.05 x10^6/uL (4.30-5.70) Hemoglobin 15.6 g/dL (13.0-17.5) 14.5 g/dL (13.0-17.5) Hematocrit 48.1 % (39.0-53.0) 44.4 % (39.0-53.0) Mean Corpuscular Volume 89 fL (79-100) 88 fL (79-100) Mean Corpuscular Hemoglobin 29 pg (25-35) 29 pg (25-35) Mean Corpuscular Hemoglobin Concent 33 g/dL (31-37) 33 g/dL (31-37) Red Cell Distribution Width 16.7 % (11.5-14.5) 16.4 % (11.5-14.5) Platelet Count 227 x10^3/uL (140-400) 224 x10^3/uL (140-400) Neutrophils (%) (Auto) 57 % (31-73) 89 % (31-73) Lymphocytes (%) (Auto) 27 % (24-48) 7 % (24-48) Monocytes (%) (Auto) 7 % (0-9) 4 % (0-9) Eosinophils (%) (Auto) 8 % (0-3) 0 % (0-3) Basophils (%) (Auto) 1 % (0-3) 0 % (0-3) Neutrophils # (Auto) 5.1 x10^3uL (1.8-7.7) 16.8 x10^3uL (1.8-7.7) Lymphocytes # (Auto) 2.4 x10^3/uL (1.0-4.8) 1.3 x10^3/uL (1.0-4.8) Monocytes # (Auto) 0.6 x10^3/uL (0.0-1.1) 0.7 x10^3/uL (0.0-1.1) Eosinophils # (Auto) 0.7 x10^3/uL (0.0-0.7) 0.0 x10^3/uL (0.0-0.7) Basophils # (Auto) 0.1 x10^3/uL (0.0-0.2) 0.0 x10^3/uL (0.0-0.2) Sodium Level 143 mmol/L (136-145) 139 mmol/L (136-145) Potassium Level 3.7 mmol/L (3.5-5.1) 3.7 mmol/L (3.5-5.1) Chloride Level 101 mmol/L (98-107) 101 mmol/L (98-107) Carbon Dioxide Level 32 mmol/L (21-32) 28 mmol/L (21-32) Anion Gap 10 (6-14) 10 (6-14) Blood Urea Nitrogen 11 mg/dL (8-26) 13 mg/dL (8-26) Creatinine 1.3 mg/dL (0.7-1.3) 1.4 mg/dL (0.7-1.3) Estimated GFR (Cockcroft-Gault) 74.0 67.9 Glucose Level 88 mg/dL (70-99) 120 mg/dL (70-99) Calcium Level 9.4 mg/dL (8.5-10.1) 9.5 mg/dL (8.5-10.1) Magnesium Level 2.0 mg/dL (1.8-2.4) Troponin I Quantitative 0.117 ng/mL (0.000-0.055) 0.102 ng/mL (0.000-0.055) Nasal Screen MRSA (PCR) Negative (Negative) Segmented Neutrophils % 87 % (35-66) Band Neutrophils % 1 % (0-9) Lymphocytes % 11 % (24-48) Monocytes % 1 % (0-10) Platelet Estimate Adequate (ADEQUATE) BUN/Creatinine Ratio 9 (6-20) Total Bilirubin 0.5 mg/dL (0.2-1.0) Aspartate Amino Transf (AST/SGOT) 26 U/L (15-37) Alanine Aminotransferase (ALT/SGPT) 28 U/L (16-63) Alkaline Phosphatase 62 U/L (46-116) Total Protein 7.4 g/dL (6.4-8.2) Albumin 3.6 g/dL (3.4-5.0) Albumin/Globulin Ratio 0.9 (1.0-1.7) Laboratory Tests Test 02/12/19 17:38 02/12/19 20:35 02/13/19 04:15 Nasal Screen MRSA (PCR) Negative (Negative) Troponin I Quantitative 0.102 ng/mL (0.000-0.055) White Blood Count 18.8 x10^3/uL (4.0-11.0) Red Blood Count 5.05 x10^6/uL (4.30-5.70) Hemoglobin 14.5 g/dL (13.0-17.5) Hematocrit 44.4 % (39.0-53.0) Mean Corpuscular Volume 88 fL (79-100) Mean Corpuscular Hemoglobin 29 pg (25-35) Mean Corpuscular Hemoglobin Concent 33 g/dL (31-37) Red Cell Distribution Width 16.4 % (11.5-14.5) Platelet Count 224 x10^3/uL (140-400) Neutrophils (%) (Auto) 89 % (31-73) Lymphocytes (%) (Auto) 7 % (24-48) Monocytes (%) (Auto) 4 % (0-9) Eosinophils (%) (Auto) 0 % (0-3) Basophils (%) (Auto) 0 % (0-3) Neutrophils # (Auto) 16.8 x10^3uL (1.8-7.7) Lymphocytes # (Auto) 1.3 x10^3/uL (1.0-4.8) Monocytes # (Auto) 0.7 x10^3/uL (0.0-1.1) Eosinophils # (Auto) 0.0 x10^3/uL (0.0-0.7) Basophils # (Auto) 0.0 x10^3/uL (0.0-0.2) Segmented Neutrophils % 87 % (35-66) Band Neutrophils % 1 % (0-9) Lymphocytes % 11 % (24-48) Monocytes % 1 % (0-10) Platelet Estimate Adequate (ADEQUATE) Sodium Level 139 mmol/L (136-145) Potassium Level 3.7 mmol/L (3.5-5.1) Chloride Level 101 mmol/L (98-107) Carbon Dioxide Level 28 mmol/L (21-32) Anion Gap 10 (6-14) Blood Urea Nitrogen 13 mg/dL (8-26) Creatinine 1.4 mg/dL (0.7-1.3) Estimated GFR (Cockcroft-Gault) 67.9 BUN/Creatinine Ratio 9 (6-20) Glucose Level 120 mg/dL (70-99) Calcium Level 9.5 mg/dL (8.5-10.1) Total Bilirubin 0.5 mg/dL (0.2-1.0) Aspartate Amino Transf (AST/SGOT) 26 U/L (15-37) Alanine Aminotransferase (ALT/SGPT) 28 U/L (16-63) Alkaline Phosphatase 62 U/L (46-116) Total Protein 7.4 g/dL (6.4-8.2) Albumin 3.6 g/dL (3.4-5.0) Albumin/Globulin Ratio 0.9 (1.0-1.7) Medications Current Medications Albuterol/ Ipratropium (Duoneb) 3 ml 1X ONCE NEB Last administered on 02/12/19at 12:12; Start 02/12/19 at 12:00; Stop 02/12/19 at 12:01; Status DC Methylprednisolone Sodium Succinate (SOLU-Medrol 125MG VIAL) 125 mg 1X ONCE IV Last administered on 02/12/19at 12:15; Start 02/12/19 at 12:15; Stop 02/12/19 at 12:16; Status DC Hydralazine HCl (Apresoline Inj) 10 mg 1X ONCE IVP Last administered on 02/12/19at 12:18; Start 02/12/19 at 12:15; Stop 02/12/19 at 12:16; Status DC Albuterol Sulfate (Ventolin Neb Soln) 10 mg 1X ONCE CONT NEB Last administered on 02/12/19at 13:09; Start 02/12/19 at 12:45; Stop 02/12/19 at 12:46; Status DC Magnesium Sulfate 50 ml @ 25 mls/hr 1X ONCE IV Last administered on 02/12/19 12:59; Start 02/12/19 at 12:45; Stop 02/12/19 at 14:44; Status DC Hydralazine HCl (Apresoline Inj) 10 mg 1X ONCE IVP Last administered on 02/12/19at 12:59; Start 02/12/19 at 13:00; Stop 02/12/19 at 13:01; Status DC Clonidine HCl (Catapres) 0.2 mg 1X ONCE PO Last administered on 02/12/19at 13:55; Start 02/12/19 at 13:00; Stop 02/12/19 at 13:02; Status DC Ondansetron HCl (Zofran) 4 mg PRN Q8HRS PRN IV NAUSEA/VOMITING Last administer ed on 02/13/19 01:04; Start 02/12/19 at 14:30; Stop 02/13/19 at 14:29; Status DC Fentanyl Citrate (Fentanyl 2ml Vial) 50 mcg PRN Q1HR PRN IV PAIN Last administered on 02/13/19at 04:44; Start 02/12/19 at 14:30; Stop 02/13/19 at 14:29; Status DC Albuterol/ Ipratropium (Duoneb) 3 ml RTQID NEB Last administered on 02/13/19at 12:51; Start 02/12/19 at 16:00; Stop 02/13/19 at 15:59 Nicardipine HCl 50 mg/Sodium Chloride 250 ml @ 25 mls/hr CONT PRN IV SEE I/O RECORD Last administered on 02/13/19at 10:31; Start 02/12/19 at 15:15 Budesonide (Pulmicort) 0.5 mg RTBID NEB Last administered on 02/13/19at 08:39; Start 02/12/19 at 20:00 Prednisone (Prednisone) 20 mg DAILY PO Last administered on 02/13/19at 08:47; Start 02/13/19 at 09:00 Albuterol Sulfate (Ventolin Neb Soln) 2.5 mg PRN Q4HRS PRN NEB SHORTNESS OF BREATH; Start 02/12/19 at 19:15 Hydrochlorothiazide (Hydrodiuril) 25 mg DAILY PO Last administered on 02/13/19at 08:47; Start 02/12/19 at 20:00 Montelukast Sodium (Singulair) 10 mg QHS PO Last administered on 02/12/19at 20:40; Start 02/12/19 at 21:00 Hydralazine HCl (Apresoline Inj) 10 mg PRN Q6HRS PRN IVP ELEVATED BP, SEE COMMENTS Last administered on 02/13/19at 09:34; Start 02/12/19 at 22:45 Lorazepam (Ativan) 1 mg PRN Q6HRS PRN PO ANXIETY / AGITATION Last administered on 02/13/19at 00:56; Start 02/12/19 at 22:45; Stop 02/13/19 at 01:40; Status DC Lorazepam (Ativan) 1 mg PRN Q4HRS PRN IV ANXIETY / AGITATION; Start 02/13/19 at 01:45 Amlodipine Besylate (Norvasc) 10 mg DAILY PO ; Start 02/14/19 at 09:00 Amlodipine Besylate (Norvasc) 10 mg 1X ONCE PO Last administered on 02/13/19at 11:46; Start 02/13/19 at 12:00; Stop 02/13/19 at 12:01; Status DC Budesonide (Pulmicort) 0.5 mg RTBID NEB ; Start 02/13/19 at 20:00; Status UNV Heparin Sodium (Porcine) (Heparin Sodium) 5,000 unit Q8HRS SQ ; Start 02/13/19 at 22:00 Active Scripts Active Hydrochlorothiazide Tablet (Hydrochlorothiazide) 25 Mg Tablet 25 Mg PO DAILY 30 Days Albuterol Sulfate Neb Soln (Albuterol Sulfate) 2.5 Mg/3 Ml Vial.neb 1 Vial NEB PRN Q4HRS Vitals/I & O Vital Sign - Last 24 Hours 02/12/19 02/12/19 02/12/19 02/12/19 15:21 15:26 15:31 15:33 Pulse 78 80 82 86 Resp 18 18 16 18 B/P (MAP) 223/129 (160) 222/134 (163) 210/110 (143) 185/95 (125) Pulse Ox 94 97 97 97 O2 Delivery Room Air 02/12/19 02/12/19 02/12/19 02/12/19 15:36 15:45 16:00 16:00 Temp 98.1 98.1 Pulse 84 84 88 Resp 16 16 22 B/P (MAP) 212/106 (141) 187/96 (126) 207/98 (134) Pulse Ox 94 95 96 O2 Delivery Room Air Room Air Room Air Room Air 02/12/19 02/12/19 02/12/19 02/12/19 17:00 17:22 17:30 18:00 Pulse 92 100 101 Resp 24 24 20 B/P (MAP) 196/103 (134) 159/82 (107) 186/99 (128) Pulse Ox 94 98 100 96 O2 Delivery Room Air Room Air Room Air Room Air 02/12/19 02/12/19 02/12/19 02/12/19 19:00 20:00 20:00 20:00 Temp 98.3 98.3 Pulse 101 90 Resp 20 24 B/P (MAP) 135/63 (87) 132/62 (85) Pulse Ox 96 97 96 O2 Delivery Room Air Room Air Room Air Room Air 02/12/19 02/12/19 02/12/19 02/12/19 20:52 21:00 22:00 23:00 Pulse 97 90 90 Resp 14 20 20 20 B/P (MAP) 165/86 (112) 158/73 (101) 146/67 (93) Pulse Ox 97 96 97 97 O2 Delivery Room Air Room Air Room Air Room Air 02/12/19 02/12/19 02/13/19 02/13/19 23:59 23:59 01:00 01:14 Temp 98.5 98.5 Pulse 85 100 93 Resp 20 20 B/P (MAP) 164/75 (104) 185/94 (124) 185/94 Pulse Ox 97 97 O2 Delivery Room Air Room Air Room Air 02/13/19 02/13/19 02/13/19 02/13/19 02:00 03:07 04:00 04:00 Temp 98.5 98.5 Pulse 100 85 83 Resp 20 20 20 B/P (MAP) 130/68 (88) 106/58 (74) 110/61 (77) Pulse Ox 97 97 97 O2 Delivery Room Air Room Air Room Air Room Air 02/13/19 02/13/19 02/13/19 02/13/19 04:44 05:00 05:14 06:00 Pulse 108 80 Resp 20 20 20 20 B/P (MAP) 173/83 (113) 165/80 (108) Pulse Ox 97 97 97 97 O2 Delivery Room Air Room Air Room Air Room Air 02/13/19 02/13/19 02/13/19 02/13/19 07:00 08:00 08:00 08:39 Temp 98.5 98.5 Pulse 76 78 Resp 20 18 B/P (MAP) 145/66 (92) 150/87 (108) Pulse Ox 93 96 97 O2 Delivery Room Air Room Air Room Air Room Air 02/13/19 02/13/19 02/13/19 02/13/19 09:00 09:34 10:00 11:00 Pulse 92 87 77 77 Resp 18 18 18 B/P (MAP) 177/84 (115) 181/85 156/73 (100) 166/78 (107) Pulse Ox 96 97 97 O2 Delivery Room Air Room Air Room Air 02/13/19 02/13/19 02/13/19 02/13/19 11:46 12:00 12:00 12:53 Temp 98.3 98.3 Pulse 84 85 Resp 20 B/P (MAP) 176/84 177/88 (117) Pulse Ox 95 97 O2 Delivery Room Air Room Air Room Air 02/13/19 13:00 Pulse 89 Resp 18 B/P (MAP) 174/83 (113) Pulse Ox 97 O2 Delivery Room Air Intake and Output 02/12/19 02/12/19 02/13/19 14:59 22:59 06:59 Intake Total 50 ml 200 ml Output Total 1200 ml 1200 ml Balance 50 ml -1000 ml -1200 ml ARELI DALEY III DO February 13, 2019 15:18
--- NOTE | 2019-02-13 15:45 | NUR ---
Patient's BP is 174/87. Have been unable to wean patient off Cardene gtt, even with 2 doses of PRN hydralazine and addition of Norvasc PO per Dr. Castanon's orders. Patient is asking about possibly going AMA. Dr. Castanon paged to see if he would like any additional PO medications to help improve BP to see if patient can come off of Cardene gtt. Patient has no complaints of pain or anxiety, does not want pain medication or Ativan. Awaiting call back.
--- NOTE | 2019-02-13 16:19 | NUR ---
Dr. Castanon returned page. Orders given to add PO Clonadine 0.2 mg TID with now dose.
[2019-02-13] MEDS ORDERED: cloNIDine HCL 0.1 MG TABLET PO ONE (16:30)
[2019-02-13] MEDS ORDERED: IPRATRPIUM/ALBUTEROL 0.5/2.5MG 3 ML NEBU. NEB SCH (17:00)
--- NOTE | 2019-02-13 18:36 | NUR ---
Patient is now off Cardene gtt, BP is 169/80, HR 81. Dr. Castanon had discussed patient being able to discharge today if gtt was stopped. Page out to Dr. Denis, hospitalist covering, to see if he would like to discharge patient and to ask if he would like patient to continue Clonidine dose at home. Awaiting call back.
--- NOTE | 2019-02-13 18:42 | NUR ---
Dr. Denis here to see patient. OK to DC to home. Orders given to continue PO Clonidine 0.2 mg TID, DC instructions to get a BP monitor and to stop taking the clonidine if his SBP <140.
[2019-02-13] MEDS ORDERED: AMLO10TA4 PO (18:56)
[2019-02-13] MEDS ORDERED: CLON0.2T PO (18:59)
--- NOTE | 2019-02-13 19:58 | NUR ---
Discharge assessment completed, education regarding stay and discharge medications completed.
[2019-02-13] MEDS ORDERED: BUDESONIDE 0.5 MG/2 ML NEBU. NEB SCH (20:00)
[2019-02-13] MEDS ORDERED: HEPARIN for SUB-Q USE 5,000 UNIT/ML VIAL. SQ SCH (22:00)
[2019-02-13] MEDS ORDERED: cloNIDine HCL 0.2 MG TABLET PO SCH (22:00)
[2019-02-14] MEDS ORDERED: amLODIPine BESYLATE 10 MG TABLET PO SCH (09:00)
== END 2019-02-13 20:14 | disposition home or self-care (01) | DRG 305 ==
LOC: ER 11:47 → 1 WEST ICU 14:05
PROVIDERS: ADMIT Internal Medicine; ATTEND Internal Medicine
DX: I16.0 Hypertensive urgency (principal); J45.901 Unspecified asthma with (acute) exacerbation; N17.9 Acute kidney failure, unspecified; F12.90 Cannabis use, unspecified, uncomplicated; I10 Essential (primary) hypertension; Z88.6 Allergy status to analgesic agent; Z88.8 Allergy status to other drugs, medicaments and biological substances; Z82.5 Family history of asthma and other chronic lower respiratory diseases
CPT/HCPCS: 36415; 71045; 80048; 80053; 83735; 84484; 85007; 85025; 87641; 93005; 94640; 94644; 94760; 96365; 96366; 96375; 96376; J0360; J2405; J2930; J3010; J3475; J7050; J7512; J7613; J7620; J7626; 99285-25; J7030

== ENCOUNTER 2019-02-25 15:37 | Emergency (ER) | payer SELFPAY ==
[~2019-02-25] VITALS: Ht 190.5 cm; Wt 108.9 kg
[~2019-02-25 15:37] MED LIST changes: +AMLO10TA4 PO; +CLON0.2T PO
[2019-02-25] MEDS ORDERED: IV NORMAL SALINE 1000ML BAG 1,000 ML IV SCH (15:50)
[2019-02-25] MEDS ORDERED: IPRATRPIUM/ALBUTEROL 0.5/2.5MG 3 ML NEBU. NEB ONE (16:00)
[2019-02-25] MEDS ORDERED: methylPREDNISolone SOD SUCC PF 125 MG/2 ML VIAL. IV ONE (16:00)
[2019-02-25 16:10] LABS: BASO # 0.1 x10^3/uL (0.0-0.2); BASO % 1 % (0-3); EOS # 0.5 x10^3/uL (0.0-0.7); EOS % 4 % (0-3); HEMATOCRIT 44.6 % (39.0-53.0); HEMOGLOBIN 14.9 g/dL (13.0-17.5); LYMPH # 3.1 x10^3/uL (1.0-4.8); LYMPH % 30 % (24-48); MEAN CORPUSCULAR HEMOGLOBIN 29 pg (25-35); MEAN CORPUSCULAR HGB CONC 33 g/dL (31-37); MEAN CORPUSCULAR VOLUME 88 fL (79-100); MONO # 0.7 x10^3/uL (0.0-1.1); MONO % 6 % (0-9); NEUT # 6.3 x10^3uL (1.8-7.7); NEUT % 59 % (31-73); PLATELET COUNT 202 x10^3/uL (140-400); RED BLOOD COUNT 5.09 x10^6/uL (4.30-5.70); RED CELL DISTRIBUTION WIDTH 16.2 % (11.5-14.5); WHITE BLOOD COUNT 10.6 x10^3/uL (4.0-11.0)
[2019-02-25 16:19] LABS: CALCIUM 9.6 mg/dL (8.5-10.1); CREATININE 1.2 mg/dL (0.7-1.3); GFR 81.1; POTASSIUM 3.1 mmol/L (3.5-5.1)
[2019-02-25 16:27] LABS: ALBUMIN 3.9 g/dL (3.4-5.0); TOTAL BILIRUBIN 0.2 mg/dL (0.2-1.0); TOTAL PROTEIN 7.8 g/dL (6.4-8.2)
[2019-02-25] MEDS ORDERED: MAGNESIUM SULFATE 2GM 50 ML IV ONE (16:30)
--- NOTE | 2019-02-25 16:52 | PHYS DOC ---
Past Medical History Past Medical History: Asthma, Hypertension Past Surgical History: Other Additional Past Surgical Histo: ACL, ACHILLES TENDON Alcohol Use: None Drug Use: None Adult General Chief Complaint Chief Complaint: SHORTNESS OF BREATH HPI HPI Patient is a 38 year old male with history of asthma who presents with complaining of shortness of breath. Patient complaining of constant shortness of breath since in the morning today as a constant problem associated with dry cough and back pain during episodes of cough. Patient states he took his home nebulizer and inhaler without improvement of his condition. Patient states he had 3 episodes of asthma attack for the last 2 weeks and was admitted last week for couple days. She denies chest pain, fever and chills, sore throat, sick con tact. Review of Systems Review of Systems Constitutional: Denies fever or chills [] Eyes: Denies change in visual acuity, redness, or eye pain [] HENT: Denies nasal congestion or sore throat [] Respiratory: Reports cough and shortness of breath Cardiovascular: No additional information not addressed in HPI [] GI: Denies abdominal pain, nausea, vomiting, bloody stools or diarrhea [] : Denies dysuria or hematuria [] Musculoskeletal: Denies back pain or joint pain [] Integument: Denies rash or skin lesions [] Neurologic: Denies headache, focal weakness or sensory changes [] Endocrine: Denies polyuria or polydipsia [] All other systems were reviewed and found to be within normal limits, except as documented in this note. Current Medications Current Medications Current Medications Medications (Trade) Dose Ordered Sig/Fariba Start Time Stop Time Status Last Admin Dose Admin Albuterol Sulfate (Ventolin Neb Soln) 10 mg 1X ONCE 02/25/19 17:30 02/25/19 17:31 DC 02/25/19 17:26 10 MG Albuterol/ Ipratropium (Duoneb) 3 ml 1X ONCE 02/25/19 16:00 02/25/19 16:01 DC 02/25/19 16:04 3 ML Lorazepam (Ativan Inj) 1 mg 1X ONCE 02/25/19 17:30 02/25/19 17:31 DC 02/25/19 17:25 1 MG Magnesium Sulfate 50 ml @ 25 mls/hr 1X ONCE 02/25/19 16:30 02/25/19 18:29 DC 02/25/19 16:49 25 MLS/HR Methylprednisolone Sodium Succinate (SOLU-Medrol 125MG VIAL) 125 mg 1X ONCE 02/25/19 16:00 02/25/19 16:01 DC 02/25/19 16:13 125 MG Potassium Chloride (Klor-Con) 40 meq 1X ONCE 02/25/19 17:45 02/25/19 17:46 DC 02/25/19 17:45 40 MEQ Sodium Chloride 1,000 ml @ 1,000 mls/hr Q1H 02/25/19 15:50 02/25/19 16:49 DC 02/25/19 16:12 1,000 MLS/HR Allergies Allergies Allergies Coded Allergies Type Severity Reaction Last Updated Verified JESSICA Inhibitors Allergy Severe face / lips swelling 02/13/19 Yes aspirin Allergy Severe ANAPHYLAXIS 02/13/19 Yes Physical Exam Physical Exam Constitutional: Well developed, well nourished, moderate distress, non-toxic appearance. [] HENT: Normocephalic, atraumatic, bilateral external ears normal, oropharynx moist, no oral exudates, nose normal. [] Eyes: PERRLA, EOMI, conjunctiva normal, no discharge. [] Neck: Normal range of motion, no tenderness, supple, no stridor. [] Cardiovascular:Heart rate regular rhythm, no murmur [] Lungs & Thorax: Moderate respiratory distress with intercostal retraction and audible wheezing and decrease of air movement. Abdomen: Bowel sounds normal, soft, no tenderness, no masses, no pulsatile masses. [] Skin: Warm, dry, no erythema, no rash. [] Back: No tenderness, no CVA tenderness. [] Extremities: No tenderness, no cyanosis, no clubbing, ROM intact, no edema. [] Neurologic: Alert and oriented X 3, normal motor function, normal sensory function, no focal deficits noted. [] Psychologic: Affect normal, judgement normal, mood normal. [] Current Patient Data Vital Signs Vital Signs Date Time Temp Pulse Resp B/P (MAP) Pulse Ox O2 Delivery O2 Flow Rate FiO2 02/25/19 19:17 82 17 179/103 (128) 96 Room Air 02/25/19 15:45 98.4 98.4 Lab Values Laboratory Tests Test 02/25/19 16:05 White Blood Count 10.6 x10^3/uL (4.0-11.0) Red Blood Count 5.09 x10^6/uL (4.30-5.70) Hemoglobin 14.9 g/dL (13.0-17.5) Hematocrit 44.6 % (39.0-53.0) Mean Corpuscular Volume 88 fL (79-100) Mean Corpuscular Hemoglobin 29 pg (25-35) Mean Corpuscular Hemoglobin Concent 33 g/dL (31-37) Red Cell Distribution Width 16.2 % (11.5-14.5) H Platelet Count 202 x10^3/uL (140-400) Neutrophils (%) (Auto) 59 % (31-73) Lymphocytes (%) (Auto) 30 % (24-48) Monocytes (%) (Auto) 6 % (0-9) Eosinophils (%) (Auto) 4 % (0-3) H Basophils (%) (Auto) 1 % (0-3) Neutrophils # (Auto) 6.3 x10^3uL (1.8-7.7) Lymphocytes # (Auto) 3.1 x10^3/uL (1.0-4.8) Monocytes # (Auto) 0.7 x10^3/uL (0.0-1.1) Eosinophils # (Auto) 0.5 x10^3/uL (0.0-0.7) Basophils # (Auto) 0.1 x10^3/uL (0.0-0.2) Sodium Level 142 mmol/L (136-145) Potassium Level 3.1 mmol/L (3.5-5.1) L Chloride Level 104 mmol/L (98-107) Carbon Dioxide Level 32 mmol/L (21-32) Anion Gap 6 (6-14) Blood Urea Nitrogen 8 mg/dL (8-26) Creatinine 1.2 mg/dL (0.7-1.3) Estimated GFR (Cockcroft-Gault) 81.1 BUN/Creatinine Ratio 7 (6-20) Glucose Level 100 mg/dL (70-99) H Lactic Acid Level 1.2 mmol/L (0.4-2.0) Calcium Level 9.6 mg/dL (8.5-10.1) Total Bilirubin 0.2 mg/dL (0.2-1.0) Aspartate Amino Transferase (AST) 18 U/L (15-37) Alanine Aminotransferase (ALT) 28 U/L (16-63) Alkaline Phosphatase 57 U/L (46-116) Creatine Kinase 335 U/L (39-308) H Troponin I Quantitative 0.058 ng/mL (0.000-0.055) IY-Iiw-D-Type Natriuretic Peptide 49 pg/mL (0-124) Total Protein 7.8 g/dL (6.4-8.2) Albumin 3.9 g/dL (3.4-5.0) Albumin/Globulin Ratio 1.0 (1.0-1.7) Laboratory Tests 02/25/19 16:05 Laboratory Tests 02/25/19 16:05 EKG EKG EKG interpreted by me. EKG at 1639 showed normal sinus rhythm at rate of 77, left atrial abnormalities, left left axis, nonspecific ST-T wave abnormalities in anteroseptal leads, unchanged from EKG dated 03/20/2018. Radiology/Procedures Radiology/Procedures [[facility] [address] [place] [address] IMAGING REPORT Signed PATIENT: MARLENE MCMULLEN ACCOUNT: [id number] : 1980 LOCATION: ER AGE: 38 SEX: M EXAM STATUS: REG ER ORD. PHYSICIAN: QIANA GUEVARA MD REASON: shortness of breath/PATIENT REFUSED @ 1630 PROCEDURE: PORTABLE CHEST 1V AP portable chest radiograph 02/25/2019 Clinical History: Shortness of breath. Two AP erect portable digital radiographs of the chest were obtained. Comparison study is dated 02/12/2019. The cardiac silhouette is borderline enlarged. The thoracic aorta is minimally tortuous. No acute pulmonary infiltrate is seen. No pleural effusion or pneumothorax is noted. The osseous structures are unchanged.. Impression: No acute abnormality is seen. Electronically signed by: Néstor Burciaga MD (02/25/2019 5:52 PM) [facility] DICTATED and SIGNED BY: NÉSTOR BURCIAGA MD DATE: 02/25/19 7810 ] Course & Med Decision Making Course & Med Decision Making Pertinent Labs and Imaging studies reviewed. (See chart for details) Evaluation of patient in ER showed 38-year-old male patient with history of asthma presented to asthma attack. Patient had moderate respiratory distress that gradually improved with IV fluid, DuoNeb, Solu-Medrol, magnesium, albuterol and Atrovent. Patient had mild elevation of troponin that was better than p revious recent ER visits and hospitalization. EKG did not show new change compared to previous EKG in 2018. Patient refuses hospitalization and wanted to try outpatient treatment. I've spoken with the patient and/or caregivers. I've explained the patient's condition, diagnosis and treatment plan based on information available to me at this time. I've answered the patient's and/or caregivers questions and addressed any concerns. The patient and/or caregivers have a good understanding the patient's diagnosis, condition and treatment plan as can be expected at this point. Vital signs have been stabilized. The patient's condition is stable for discharge from the emergency department. The patient will pursue further outpatient evaluation with her primary care provider or other designated consulting physician as outlined in the discharge instructions. Patient and/or caregivers are agreeable to this plan of care and follow-up instructions have been explained in detail. The patient and/or caregivers have received these instructions in written format and expressed understanding of these discharge instructions. The patient and her caregivers are aware that if any significant change in condition or worsening of symptoms should prompt him to immediately return to this of the closest emergency department. If an emergent department is not readily available I would encourage him to call 911. Kathy Disclaimer Dragon Disclaimer This electronic medical record was generated, in whole or in part, using a voice recognition dictation system. Departure Departure Impression: Primary Impression: Acute severe exacerbation of asthma Additional Impressions: Elevated troponin Hypokalemia Disposition: HOME, SELF-CARE (at 1820) Condition: IMPROVED Referrals: Cem MASSEY MD (PCP) Patient Instructions: Acute Bronchitis, Asthma Attacks, Prevention, Asthma, Acute Bronchospasm, Hypokalemia Additional Instructions: Drink plenty of liquids Follow-up with your primary care physician in 3-5 days Return to ER if not getting better Continue home medication Scripts Azithromycin (ZITHROMAX) 250 Mg Tablet 1 PKG PO UD for infection, #1 PKG Prov: QIANA GUEVARA MD 02/25/19 Methylprednisolone (MEDROL) 4 Mg Tab.ds.pk 1 PKG PO UD for inflammation, #1 PKG Prov: QIANA GUEVARA MD 02/25/19 Ipratropium [place] (IPRATROPIUM BROMIDE) 0.2 Mg/1 Ml Solution 1 VIAL NEB QID, #300 ML 0 Refills Prov: QIANA GUEVARA MD 02/25/19 Critical Care Time Critical care time was 60 minutes exclusive of procedures. Problem Qualifiers QIAAN GUEVARA MD February 25, 2019 16:52
[2019-02-25] MEDS ORDERED: ALBUTEROL SULFATE 2.5 MG/3 ML NEBU. CONT NEB ONE (17:30)
[2019-02-25] MEDS ORDERED: POTASSIUM CHLORIDE 20 MEQ TABLET.ER. PO ONE (17:45)
--- NOTE | 2019-02-25 17:55 | RAD ---
AP portable chest radiograph 02/25/2019 Clinical History: Shortness of breath. Two AP erect portable digital radiographs of the chest were obtained. Comparison study is dated 02/12/2019. The cardiac silhouette is borderline enlarged. The thoracic aorta is minimally tortuous. No acute pulmonary infiltrate is seen. No pleural effusion or pneumothorax is noted. The osseous structures are unchanged.. Impression: No acute abnormality is seen. Electronically signed by: Néstor Burciaga MD (02/25/2019 5:52 PM) [facility]
[2019-02-25] MEDS ORDERED: IPRA0.2S5 NEB (18:14)
[2019-02-25] MEDS ORDERED: METH4TAB2 PO (18:14)
[2019-02-25] MEDS ORDERED: AZIT250T PO (18:14)
[2019-02-25 19:17] VITALS: BP 179/103
--- NOTE | 2019-02-26 12:36 | EKG ---
[facility] [address] [place] [address] Test Date: 2019-02-25 Test Time: 16:39:03 Pat Name: MARLENE MCMULLEN Department: Room: Gender: M Dispute Resolution Analyst: : 1980 Requested By: QIANA GUEVARA Order Number: [id number] Reading MD: Measurements Intervals [place] Rate: 76 P: -27 RI: 130 QRS: -4 QRSD: 90 T: 34 QT: 378 QTc: 429 Interpretive Statements SINUS RHYTHM LEFT ATRIAL ABNORMALITY LEFTWARD AXIS NON SPECIFIC ST-T ABNORMALITY (ELEVATION) ABNORMAL ECG No previous ECG available for comparison
== END 2019-02-25 19:50 | disposition home or self-care (01) ==
LOC: ER 15:37
DX: J45.901 Unspecified asthma with (acute) exacerbation (principal); R79.89 Other specified abnormal findings of blood chemistry; E87.6 Hypokalemia; M54.9 Dorsalgia, unspecified; I10 Essential (primary) hypertension; Z88.6 Allergy status to analgesic agent; Z88.8 Allergy status to other drugs, medicaments and biological substances
CPT/HCPCS: 36415; 71045; 80053; 82550; 83605; 83880; 84484; 85025; 93005; 94640; 94644; 96365; 96375; 99285; J2060; J2930; J3475; J7030; J7613; J7620

== ENCOUNTER 2019-07-11 17:53 | Emergency (ER) | payer SELFPAY ==
[~2019-07-11] VITALS: Ht 193 cm; Wt 99.8 kg
[~2019-07-11 17:53] MED LIST changes: +AZIT250T PO; +IPRA0.2S5 NEB; +METH4TAB2 PO
[2019-07-11] MEDS ORDERED: IPRATRPIUM/ALBUTEROL 0.5/2.5MG 3 ML NEBU. NEB ONE (18:45)
[2019-07-11] MEDS ORDERED: cloNIDine HCL 0.1 MG TABLET PO ONE (18:45)
--- NOTE | 2019-07-11 18:48 | PHYS DOC ---
Past Medical History Past Medical History: Asthma, Hypertension Past Surgical History: Other Additional Past Surgical Histo: ACL, ACHILLES TENDON Alcohol Use: None Drug Use: None Adult General Chief Complaint Chief Complaint: ASTHMA HPI HPI Patient is a 39-year-old male who presents with complaint of cough and wheezing for the last week. Patient states that he had used the nebulizer earlier today but it is not helping with the symptoms. Patient states that the cough is been productive of yellow to clear sputum. He denies any fever. Patient states symptoms of shortness of breath are worsened with exertion. Patient also indicates that he has history of hypertension and is out of his blood pressure medication. He denies any chest pain.[] Review of Systems Review of Systems Constitutional: Denies fever or chills [] Respiratory: Positive cough and shortness of breath [] Cardiovascular: No additional information not addressed in HPI [] Musculoskeletal: Denies back pain or joint pain [] Integument: Denies rash or skin lesions [] Neurologic: Denies headache, focal weakness or sensory changes [] All other systems were reviewed and found to be within normal limits, except as documented in this note. Current Medications Current Medications Current Medications Medications (Trade) Dose Ordered Sig/Fariba Start Time Stop Time Status Last Admin Dose Admin Albuterol/ Ipratropium (Duoneb) 3 ml 1X ONCE 07/11/19 18:45 07/11/19 18:46 DC 07/11/19 18:58 3 ML Clonidine HCl (Catapres) 0.2 mg 1X ONCE 07/11/19 18:45 07/11/19 18:46 DC 07/11/19 19:11 0.2 MG Allergies Allergies Allergies Coded Allergies Type Severity Reaction Last Updated Verified JESSICA Inhibitors Allergy Severe face / lips swelling 02/13/19 Yes aspirin Allergy Severe ANAPHYLAXIS 02/13/19 Yes Physical Exam Physical Exam Constitutional: Well developed, well nourished, no acute distress, non-toxic ap pearance. [] Eyes: PERRLA, EOMI, conjunctiva normal, no discharge. [] Neck: Normal range of motion, no tenderness, supple, no stridor. [] Cardiovascular:Heart rate regular rhythm, no murmur [] Lungs & Thorax: Fine inspiratory and expiratory wheezes are noted bilaterally to auscultation [] Skin: Warm, dry, no erythema, no rash. [] Extremities: No tenderness, no cyanosis, no clubbing, ROM intact, no edema. [] Neurologic: Alert and oriented X 3, no focal deficits noted. [] Current Patient Data Vital Signs Vital Signs Date Time Temp Pulse Resp B/P (MAP) Pulse Ox O2 Delivery O2 Flow Rate FiO2 07/11/19 19:31 203/128 (153) 07/11/19 19:11 78 07/11/19 18:59 Room Air 07/11/19 18:39 98.9 18 95 98.9 EKG EKG [] Radiology/Procedures Radiology/Procedures [] Impressions: Two-view chest x-ray demonstrates no acute process. Course & Med Decision Making Course & Med Decision Making Pertinent Labs and Imaging studies reviewed. (See chart for details) [] Dragon Disclaimer Dragon Disclaimer This electronic medical record was generated, in whole or in part, using a voice recognition dictation system. Departure Departure Impression: Primary Impression: Asthma with acute exacerbation Additional Impression: Essential hypertension Disposition: HOME, SELF-CARE Condition: STABLE Referrals: NO PCP (PCP) Patient Instructions: Asthma, Adult, Hypertension Additional Instructions: Tomorrow morning call to schedule follow-up appointment with her primary care edgardo regalado for later this week. Scripts Hydrochlorothiazide (HYDROCHLOROTHIAZIDE TABLET ) 25 Mg Tablet 25 MG PO DAILY, #30 TAB 0 Refills Prov: ERIK JJ Jr. DO 07/11/19 Ipratropium/Albuterol Sulfate (DUONEB 0.5-3(2.5) MG/3 ML) 3 Ml Ampul.neb 3 ML NEB QID PRN for SHORTNESS OF BREATH, #60 EACH Prov: ERIK JJ Jr. DO 07/11/19 Problem Qualifiers Primary Impression: Asthma with acute exacerbation Asthma severity: unspecified severity Asthma persistence: unspecified Qualified Codes: J45.901 - Unspecified asthma with (acute) exacerbation ERIK JJ Jr. DO Jul 11, 2019 18:48
[2019-07-11 19:31] VITALS: BP 203/128
[2019-07-11] MEDS ORDERED: HYDR-2145 PO (19:39)
[2019-07-11] MEDS ORDERED: IPRA3AMP29 NEB (19:39)
--- NOTE | 2019-07-11 20:18 | RAD ---
CHEST PA LATERAL History: Cough and wheezing Comparison: February 25, 2019 Findings: No consolidation or pleural effusion. Normal heart size. Impression: 1. No acute cardiopulmonary process. Electronically signed by: Romero Neal DO (07/11/2019 8:15 PM) [facility]
== END 2019-07-11 19:45 | disposition home or self-care (01) ==
LOC: ER 17:53
DX: J45.901 Unspecified asthma with (acute) exacerbation (principal); I10 Essential (primary) hypertension; Z88.6 Allergy status to analgesic agent; Z88.8 Allergy status to other drugs, medicaments and biological substances
CPT/HCPCS: 71046; 94640; 99284; J7620

== ENCOUNTER 2020-11-01 00:05 | Emergency (ER) | payer BC ==
[~2020-11-01] VITALS: Ht 190.5 cm; Wt 111.4 kg
[~2020-11-01 00:05] MED LIST changes: +AMLO-186 PO; +AMLO-187 PO; -AMLO10TA8 PO; -AMLO5TAB10 PO; -HYDR50TA6 PO; +HYDR50TA9 PO; +IPRA3AMP29 NEB; -LISI-334 PO; +LISI20TA18 PO
[2020-11-01] MEDS ORDERED: predniSONE 20 MG TABLET PO ONE (01:00)
[2020-11-01] MEDS ORDERED: IPRATRPIUM/ALBUTEROL 0.5/2.5MG 3 ML NEBU. NEB ONE (01:00)
--- NOTE | 2020-11-01 01:34 | ED.ADGEN ---
Past Medical History Past Medical History: Asthma, Hypertension Past Surgical History: Other Additional Past Surgical Histo: ACL, ACHILLES TENDON, COLLAPSED LUNG Smoking Status: Former Smoker Alcohol Use: None Drug Use: None General Adult EDM: Chief Complaint: SHORTNESS OF BREATH HPI: HPI: Patient is a 40 year old male coming in for asthma exacerbation. States that after working in the cold Review of Systems: Review of Systems: All other systems within normal limits except for as noted in the HPI Current Medications: Current Medications Medications (Trade) Dose Ordered Sig/Fariba Start Time Stop Time Status Last Admin Dose Admin Albuterol/ Ipratropium (Duoneb) 3 ml 1X ONCE 11/01/20 01:00 11/01/20 01:01 DC 11/01/20 01:16 3 ML Prednisone (Prednisone) 60 mg 1X ONCE 11/01/20 01:00 11/01/20 01:01 DC 11/01/20 00:55 60 MG Allergies: Allergies: Allergies Coded Allergies Type Severity Reaction Last Updated Verified JESSICA Inhibitors Allergy Severe face / lips swelling 02/13/19 Yes aspirin Allergy Severe ANAPHYLAXIS 02/13/19 Yes Physical Exam: PE: Constitutional: Well developed, well nourished, no acute distress, non-toxic appearance. [] HENT: Normocephalic, atraumatic, bilateral external ears normal, nose normal. [] Eyes: PERRLA, conjunctiva normal, no discharge. [] Neck: No rigidity, supple, no stridor. [] Cardiovascular: Regular rate and rhythm, brisk cap refill [] Lungs & Thorax: Non labored symmetric respirations, no tachypnea or respiratory distress. Clear to auscultation without wheezing, slightly diminished. [] Abdomen: Soft, nondistended. Skin: Warm, dry, no erythema, no rash. [] Back: Unremarkable Extremities: No deformities, range of motion grossly intact, no lower extremity edema [] Neurologic: Alert and oriented X 3, no focal deficits noted. [] Psychologic: Affect normal, judgement normal, mood normal. [] Current Patient Data: Vital Signs: Vital Signs Date Time Temp Pulse Resp B/P (MAP) Pulse Ox O2 Delivery O2 Flow Rate FiO2 11/01/20 01:16 98 Room Air 11/01/20 00:09 97.2 103 20 224/149 (174) 97.2 EKG: EKG: [] Heart Score: Risk Factors: Risk Factors: DM, Current or recent (<one month) smoker, HTN, HLP, family history of CAD, obesity. Risk Scores: Score 0 - 3: 2.5% MACE over next 6 weeks - Discharge Home Score 4 - 6: 20.3% MACE over next 6 weeks - Admit for Clinical Observation Score 7 - 10: 72.7% MACE over next 6 weeks - Early Invasive Strategies Radiology/Procedures: Radiology/Procedures: [] Course & Med Decision Making: Course & Med Decision Making Given nebulizer and scription for his high blood pressure medications he was on before Patient had a follow-up with primary care. No indication for work-up of asym ptomatic hypertension in the emergency department [] Dragon Disclaimer: Kathy Disclaimer: This electronic medical record was generated, in whole or in part, using a voice recognition dictation system. Departure Departure Impression: Primary Impression: Asthma with acute exacerbation Additional Impression: Uncontrolled hypertension Disposition: DC HOME SELF CARE/HOMELESS Condition: STABLE Referrals: NO PCP (PCP) Patient Instructions: Asthma Prevention-Brief Additional Instructions: You have been tested for or diagnosed with COVID-19. It is an infection caused by a new type of coronavirus. COVID-19 will cause cold-like or mild flu symptoms in most. It can cause more severe symptoms like problems breathing in some. There is no treatment for COVID-19. The body will clear the infection over time. Self-care will help to ease discomfort. Steps to Take: Self-Care Rest as needed. Healthy habits may help you feel better. Steps include: Choose healthy foods including fruits and vegetables. Drink water throughout the day. Get plenty of sleep each night. If you smoke, try to quit. It may ease breathing. Avoid alcohol. Keep Others Healthy The virus can spread to others. Droplets are released every time you sneeze or cough. The droplets can get into the mouth, nose, or eyes of people near you and lead to infection. To lower the chances of spreading COVID-19 to others: Stay at home until your doctor has said it is safe to leave. If you tested positive this will mean staying isolated until both of the following are true: At least 7 days have passed since the start of illness. You are free of fever for at least 72 hours without the use of medicine. During this time: - Avoid public areas, events, or transportation. Do not return to work or school until your doctor has said it is safe to do so. - Call ahead if you need to go to a medical center. Let them know you may have COVID-19. It will help them guide you where to go. They may also ask you to wear a facemask when you come to the office. - If you call for emergency medical services, let them know you may have COVID- 19. While at home: - Try to avoid close contact with others. Stay about 6 feet away. - If possible, spend most of your time in a separate room from others. - Use a face mask if you will be in close contact with others such as sharing a room or vehicle. - Have someone wipe down common surfaces in the home. Use household gameplay programmer e very day on areas like doorknobs, counters, or sinks. - Cough or sneeze into a tissue. Throw the tissue away right after use. If a tissue is not available, cough or sneeze into your elbow. - Wash your hands often. Wash them after sneezing or coughing. Use soap and water and wash for at least 20 seconds. Alcohol based hand grounds cleaner can be used if soap and water is not available. - Do not prepare food for others. Avoid sharing personal items like forks, spoons, or toothbrushes. - Avoid close contact with pets while you are sick. There is no evidence of the virus passing to pets. This is a safety step until more is known about this virus. Isolation can be frustrating. Social interaction can help. Keep in touch with friends and family through phone and tech options. You can still interact with others in your home, just keep a safe distance of about 6 feet. Follow-up: Your doctors office will check in with you to see if there are any changes in your health. You may be asked to keep track of symptoms to share with them. They will also let you know when you are clear to be in public again. Problems to Look Out For: Contact your doctor if your recovery is not going as you expect. Get emergency care if you have problems such as: - Trouble breathing - Nonstop chest pain or pressure - Changes in awareness, confusion, or problems waking - Lips or face have bluish color - Worsening of symptoms If you think you have an emergency, call for emergency medical services right away. As taken from [employer] Health Scripts Albuterol Sulfate (PROAIR HFA INHALER) 8.5 Gm Hfa.aer.ad 2 PUFF IH PRN Q4-6HRS PRN for wheezing for 21 Days, #1 INHALER 1 Refill Prov: YULIANA DOUGLAS MD 11/01/20 Ipratropium/Albuterol Sulfate (DUONEB 0.5-3(2.5) MG/3 ML) 3 Ml Ampul.neb 3 ML NEB QID PRN for WHEEZING for 10 Days, #40 EACH Prov: YULIANA DOUGLAS MD 11/01/20 Hydrochlorothiazide (Hydrochlorothiazide) 25 Mg Tablet 25 MG PO DAILY for hypertension for 30 Days, #30 TAB Prov: YULIANA DOUGLAS MD 11/01/20 Prednisone (PREDNISONE) 50 Mg Tablet 1 TAB PO DAILY for steroid, #5 TAB Prov: YULIANA DOUGLAS MD 11/01/20 Problem Qualifiers YULIANA DOUGLAS MD Nov 01, 2020 01:34
[2020-11-01 02:11] VITALS: BP 199/132
[2020-11-01] MEDS ORDERED: IPRA3AMP29 NEB (02:13)
[2020-11-01] MEDS ORDERED: HYDR25TA10 PO (02:13)
[2020-11-01] MEDS ORDERED: PRED50TA PO (02:13)
[2020-11-01] MEDS ORDERED: ALBU2.5V8 IH (02:13)
== END 2020-11-01 02:30 | disposition home or self-care (01) ==
LOC: ER 00:05
DX: J45.901 Unspecified asthma with (acute) exacerbation (principal); I10 Essential (primary) hypertension; Z87.891 Personal history of nicotine dependence; Z88.8 Allergy status to other drugs, medicaments and biological substances
CPT/HCPCS: 94640; 99283; J7512

== ENCOUNTER 2020-12-18 12:41 | Emergency (ER) | payer BC ==
[~2020-12-18] VITALS: Ht 193 cm; Wt 109.1 kg
[~2020-12-18 12:41] MED LIST changes: +ALBU2.5V8 IH; +HYDR25TA10 PO; +PRED50TA PO
[2020-12-18] MEDS ORDERED: hydroCHLOROthiazide 25 MG TABLET PO ONE (13:15)
--- NOTE | 2020-12-18 13:21 | ED.ADGEN ---
Past Medical History Past Medical History: Asthma, Hypertension Past Surgical History: Other Additional Past Surgical Histo: L ACL,L ACHILLES TENDON, COLLAPSED LUNG Smoking Status: Never Smoker Alcohol Use: None Drug Use: None General Adult EDM: Chief Complaint: MEDICATION REFILL HPI: HPI: Patient is a 40 year old AA male who presents to the ER with a request for medication refills. Patient reports history of asthma and states that he is out of his albuterol inhaler and nebulizer vials. Patient also reports a history of hypertension and requests a refill for his hydrochlorothiazide. He complains of a frontal sinus headache but denies any vision changes, dizziness, numbness, tingling, weakness, chest pain, shortness of breath, cough, body aches, fatigue, abdominal pain, or ear pain. He currently denies any pain or complaints at this time. Review of Systems: Review of Systems: Complete ROS is negative unless otherwise noted in HPI. Current Medications: Current Medications Medications (Trade) Dose Ordered Sig/Fariba Start Time Stop Time Status Last Admin Dose Admin Hydrochlorothiazide (Hydrodiuril) 25 mg 1X ONCE 12/18/20 13:15 12/18/20 13:16 DC 12/18/20 13:17 25 MG Allergies: Allergies: Allergies Coded Allergies Type Severity Reaction Last Updated Verified JESSICA Inhibitors Allergy Severe face / lips swelling 02/13/19 Yes aspirin Allergy Severe ANAPHYLAXIS 02/13/19 Yes Physical Exam: PE: See Above Constitutional: Well developed, well nourished, no acute distress, non-toxic appearance. [] HENT: Normocephalic, atraumatic, bilateral external ears normal, nose normal. [] Eyes: PERRLA, EOMI, conjunctiva normal, no discharge. [] Neck: Normal range of motion, no stridor. [] Cardiovascular:Heart rate regular rhythm Lungs & Thorax: Respirations even and unlabored, no retractions, no respiratory distress Skin: Warm, dry, no erythema, no rash. [] Extremities: No cyanosis, ROM intact, no edema. [] Neurologic: Alert and oriented X 3, normal motor, normal sensory, no focal deficits noted. [] Psychologic: Affect normal, judgement normal, mood normal. [] Current Patient Data: Vital Signs: Vital Signs Date Time Temp Pulse Resp B/P (MAP) Pulse Ox O2 Delivery O2 Flow Rate FiO2 12/18/20 12:48 98.0 82 16 203/124 (150) 98 98.0 EKG: EKG: [] Heart Score: C/O Chest Pain: No Risk Factors: Risk Factors: DM, Current or recent (<one month) smoker, HTN, HLP, family history of CAD, obesity. Risk Scores: Score 0 - 3: 2.5% MACE over next 6 weeks - Discharge Home Score 4 - 6: 20.3% MACE over next 6 weeks - Admit for Clinical Observation Score 7 - 10: 72.7% MACE over next 6 weeks - Early Invasive Strategies Radiology/Procedures: Radiology/Procedures: [] Course & Med Decision Making: Course & Med Decision Making Pertinent Labs and Imaging studies reviewed. (See chart for details) 40-year-old male presented to the emergency department with request for medication refills. Patient's blood pressure was elevated in the ER however he was asymptomatic. Refills written for the medications as requested. Encouraged patient to follow- up with his primary care doctor, Dr. Massey next week for reevaluation, return to the ER if symptoms worsen or fever develops. Patient verbalized an understanding of home care, medications, follow-up, and return to ED instructions and was in agreement with the plan of care. [] Dragon Disclaimer: Dragon Disclaimer: This electronic medical record was generated, in whole or in part, using a voice recognition dictation system. Departure Departure Impression: Primary Impression: Encounter for medication refill Additional Impression: Uncontrolled hypertension Disposition: 01 DC HOME SELF CARE/HOMELESS Condition: STABLE Referrals: NO PCP (PCP) Cem MASSEY MD Patient Instructions: Hypertension, [id number], Medication Refill, Emergency Department Additional Instructions: Fill the prescription(s) and use as directed. Recommend that you take 10 mg of generic Zyrtec (cetirizine) or Claritin at bedtime and use over the counter Flonase (fluticasone) nasal spray 2 sprays each nostril once daily in the morning. Increase clear fluids. Avoid triggers such as smoke, fragrance, dust, and pollen. Follow-up with your primary care doctor next week, return to the ER if symptoms worsen or fever develops.. Scripts Hydrochlorothiazide (HYDROCHLOROTHIAZIDE TABLET ) 25 Mg Tablet 25 MG PO DAILY for DIURETIC for 30 Days, #30 TAB 1 Refill Prov: NESTOR PAN AUTO APPRAISER 12/18/20 Albuterol Sulfate (Proair Hfa) 8.5 Gm Hfa.aer.ad 2 PUFF IH PRN Q4-6HRS PRN for wheezing for 21 Days, #1 INHALER 0 Refills Prov: NESTOR PAN AUTO APPRAISER 12/18/20 Albuterol Sulfate (ALBUTEROL SULFATE NEB SOLN) 2.5 Mg/3 Ml Vial.neb 1 VIAL NEB PRN Q4HRS PRN for SHORTNESS OF BREATH, #50 VIAL 1 Refill Prov: NESTOR PAN AUTO APPRAISER 12/18/20 Problem Qualifiers NESTOR PAN AUTO APPRAISER Dec 18, 2020 13:21
[2020-12-18] MEDS ORDERED: ALBU2.5V8 IH (13:33)
[2020-12-18] MEDS ORDERED: ALBU2.5V5 NEB (13:33)
[2020-12-18 13:35] VITALS: BP 207/126
[2020-12-18] MEDS ORDERED: HYDR-2145 PO (13:44)
== END 2020-12-18 13:39 | disposition home or self-care (01) ==
LOC: ER 12:41
DX: I10 Essential (primary) hypertension (principal); R51.9 Headache, unspecified; J45.909 Unspecified asthma, uncomplicated; Z98.890 Other specified postprocedural states; Z88.8 Allergy status to other drugs, medicaments and biological substances; Z76.0 Encounter for issue of repeat prescription
CPT/HCPCS: 99281